=== PATIENT | male | born 1935 | race Caucasian/White ===

== ENCOUNTER 2023-04-19 15:14 | Outpatient (RCR) | payer MEDICARE, SELFPAY | END 2023-04-19 23:59 | disposition home or self-care (01) | LOC: RPT 15:14 | PROVIDERS: ATTENDING PHYSICIAN Specialist; PRIMARYCARE PHYSICIAN Family Medicine | DX: M17.11 Unilateral primary osteoarthritis, right knee (principal); Z73.6 Limitation of activities due to disability | CPT/HCPCS: 97110; 97530 ==

== ENCOUNTER 2023-06-12 12:58 | Outpatient (RCR) | payer MEDICARE, SELFPAY | END 2023-06-12 23:59 | disposition home or self-care (01) | LOC: RPT 12:58 | PROVIDERS: ATTENDING PHYSICIAN Specialist; PRIMARYCARE PHYSICIAN Family Medicine | DX: M17.11 Unilateral primary osteoarthritis, right knee (principal); R29.898 Other symptoms and signs involving the musculoskeletal system; Z73.6 Limitation of activities due to disability; M62.81 Muscle weakness (generalized); M25.561 Pain in right knee | CPT/HCPCS: 97110; 97112; 97140 ==

== ENCOUNTER 2023-06-19 12:57 | Outpatient (RCR) | payer MEDICARE, SELFPAY | END 2023-06-19 14:13 | disposition home or self-care (01) | LOC: RPT 12:57 | PROVIDERS: ATTENDING PHYSICIAN Specialist; PRIMARYCARE PHYSICIAN Family Medicine | DX: M17.11 Unilateral primary osteoarthritis, right knee (principal); R29.898 Other symptoms and signs involving the musculoskeletal system; Z73.6 Limitation of activities due to disability; M62.81 Muscle weakness (generalized) | CPT/HCPCS: 97110; 97112; 97140; 97530 ==

== ENCOUNTER → 2023-06-19 14:08 | Outpatient (REF) | payer MEDICARE, SELFPAY | LOC: RAD 14:08 | PROVIDERS: ATTENDING PHYSICIAN Internal Medicine Rheumatology; FAMILY PHYSICIAN Family Medicine | DX: R29.898 Other symptoms and signs involving the musculoskeletal system (principal) | CPT/HCPCS: 73523 ==

== ENCOUNTER → 2023-06-21 12:18 | Outpatient (REF) | payer MEDICARE, SELFPAY ==
[2023-06-21 13:11] LABS: INR 3.32; PT 33.7 Sec (11.4-14.6)
== END ==
LOC: REG 12:18
PROVIDERS: ATTENDING PHYSICIAN Internal Medicine Cardiovascular Disease; FAMILY PHYSICIAN Family Medicine
DX: I48.21 Permanent atrial fibrillation (principal)
CPT/HCPCS: 36415; 85610

== ENCOUNTER → 2023-07-10 15:16 | Outpatient (REF) | payer MEDICARE, SELFPAY | LOC: RAD 15:16 | PROVIDERS: ATTENDING PHYSICIAN Internal Medicine Rheumatology; FAMILY PHYSICIAN Family Medicine | DX: M25.561 Pain in right knee (principal) | CPT/HCPCS: 73560 ==

== ENCOUNTER → 2023-07-18 14:33 | Outpatient (REF) | payer MEDICARE, SELFPAY ==
[2023-07-18 15:30] LABS: INR 1.95; PT 22.5 Sec (11.4-14.6)
== END ==
LOC: REG 14:33
PROVIDERS: ATTENDING PHYSICIAN Internal Medicine Cardiovascular Disease; FAMILY PHYSICIAN Family Medicine
DX: I48.21 Permanent atrial fibrillation (principal)
CPT/HCPCS: 36415; 85610

== ENCOUNTER → 2023-07-26 12:14 | Outpatient (REF) | payer MEDICARE, SELFPAY ==
[2023-07-26 14:19] LABS: INR 2.17
== END ==
LOC: REG 12:14
PROVIDERS: ATTENDING PHYSICIAN Internal Medicine Cardiovascular Disease; FAMILY PHYSICIAN Family Medicine
DX: I48.21 Permanent atrial fibrillation (principal)
CPT/HCPCS: 36415; 85610

== ENCOUNTER → 2023-08-03 10:59 | Outpatient (REF) | payer MEDICARE, SELFPAY ==
[2023-08-03 11:38] LABS: INR 2.38; PT 25.9 Sec (11.4-14.6)
== END ==
LOC: REG 10:59
PROVIDERS: ATTENDING PHYSICIAN Internal Medicine Cardiovascular Disease; FAMILY PHYSICIAN Family Medicine
DX: I48.21 Permanent atrial fibrillation (principal)
CPT/HCPCS: 36415; 85610

== ENCOUNTER → 2023-08-12 14:00 | Outpatient (REF) | payer MEDICARE, SELFPAY ==
[2023-08-12 15:36] LABS: INR 2.29; PT 25.1 Sec (11.4-14.6)
== END ==
LOC: REG 14:00
PROVIDERS: ATTENDING PHYSICIAN Family Medicine; FAMILY PHYSICIAN Internal Medicine Cardiovascular Disease
DX: I48.21 Permanent atrial fibrillation (principal)
CPT/HCPCS: 36415; 85610

== ENCOUNTER → 2023-08-18 11:37 | Outpatient (REF) | payer MEDICARE, SELFPAY | LOC: MRI 3T 11:37 | PROVIDERS: ATTENDING PHYSICIAN Specialist; FAMILY PHYSICIAN Family Medicine | DX: M25.561 Pain in right knee (principal) | CPT/HCPCS: 73721 ==

== ENCOUNTER → 2023-08-19 15:55 | Outpatient (REF) | payer MEDICARE, SELFPAY ==
[2023-08-19 17:08] LABS: INR 2.04; PT 22.9 Sec (11.4-14.6)
== END ==
LOC: REG 15:55
PROVIDERS: ATTENDING PHYSICIAN Internal Medicine Cardiovascular Disease; FAMILY PHYSICIAN Family Medicine
DX: I48.21 Permanent atrial fibrillation (principal)
CPT/HCPCS: 36415; 85610

== ENCOUNTER → 2023-09-18 14:37 | Outpatient (REF) | payer MEDICARE, SELFPAY ==
[2023-09-18 15:34] LABS: INR 1.65; PT 19.6 Sec (11.4-14.6)
== END ==
LOC: REG 14:37
PROVIDERS: ATTENDING PHYSICIAN Internal Medicine Cardiovascular Disease; FAMILY PHYSICIAN Family Medicine
DX: Z79.01 Long term (current) use of anticoagulants (principal)
CPT/HCPCS: 36415; 85610

== ENCOUNTER → 2023-09-25 15:33 | Outpatient (REF) | payer MEDICARE, SELFPAY ==
[2023-09-25 16:21] LABS: PT 22.8 Sec (11.4-14.6)
== END ==
LOC: REG 15:33
PROVIDERS: ATTENDING PHYSICIAN Internal Medicine Cardiovascular Disease; FAMILY PHYSICIAN Family Medicine
DX: Z79.01 Long term (current) use of anticoagulants (principal)
CPT/HCPCS: 36415; 85610

== ENCOUNTER → 2023-10-08 11:18 | Outpatient (REF) | payer MEDICARE, SELFPAY ==
[2023-10-08 13:10] LABS: INR 2.63
== END ==
LOC: REG 11:18
PROVIDERS: ATTENDING PHYSICIAN Internal Medicine Cardiovascular Disease; FAMILY PHYSICIAN Family Medicine
DX: Z79.01 Long term (current) use of anticoagulants (principal)
CPT/HCPCS: 36415; 85610

== ENCOUNTER 2023-10-11 09:08 | Outpatient (RCR) | payer MEDICARE, SELFPAY | END 2023-10-11 23:59 | disposition home or self-care (01) | LOC: RPT 09:08 | PROVIDERS: ATTENDING PHYSICIAN Internal Medicine Rheumatology; FAMILY PHYSICIAN Family Medicine | DX: M17.11 Unilateral primary osteoarthritis, right knee (principal) | CPT/HCPCS: 97162; 97530 ==

== ENCOUNTER → 2023-10-17 12:08 | Outpatient (REF) | payer MEDICARE, SELFPAY ==
[2023-10-17 13:00] LABS: INR 3.28; PT 33.9 Sec (11.4-14.6)
== END ==
LOC: REG 12:08
PROVIDERS: ATTENDING PHYSICIAN Internal Medicine Cardiovascular Disease; FAMILY PHYSICIAN Family Medicine
DX: Z79.01 Long term (current) use of anticoagulants (principal)
CPT/HCPCS: 36415; 85610

== ENCOUNTER → 2023-10-24 07:38 | Outpatient (REF) | payer MEDICARE, SELFPAY ==
[2023-10-24 09:23] LABS: INR 3.08; PT 32.3 Sec (11.4-14.6)
[2023-10-24 09:38] LABS: Blood Urea Nitrogen 37 mg/dl (9-20); Carbon Dioxide 28 mmol/L (22-30); Chloride 100 mmol/L (98-107); Glucose 113 mg/dl (70-99); HDL Cholesterol 42 mg/dl; LDL Cholesterol, Calculated 57 mg/dl; Potassium 4.3 mmol/L (3.5-5.1); Sodium 140 mmol/L (135-145); Total Cholesterol 116 mg/dl (50-199); Triglyceride 85 mg/dl (10-149); Very Low Density Lipoprotein 17 mg/dl (0-30); eGFR > 60.00
[2023-10-25 09:11] LABS: Glycohemoglobin (HgbA1c) 6.2 % (4.0-5.6)
== END ==
LOC: REG 07:38
PROVIDERS: ATTENDING PHYSICIAN Family Medicine; FAMILY PHYSICIAN Internal Medicine Cardiovascular Disease
DX: E11.59 Type 2 diabetes mellitus with other circulatory complications (principal); Z79.01 Long term (current) use of anticoagulants
CPT/HCPCS: 36415; 80048; 80061; 83036; 85610

== ENCOUNTER → 2023-11-01 10:20 | Outpatient (REF) | payer MEDICARE, SELFPAY ==
[2023-11-01 11:31] LABS: PT 32.7 Sec (11.4-14.6)
== END ==
LOC: REG 10:20
PROVIDERS: ATTENDING PHYSICIAN Internal Medicine Cardiovascular Disease; FAMILY PHYSICIAN Family Medicine
DX: I48.20 Chronic atrial fibrillation, unspecified (principal)
CPT/HCPCS: 36415; 85610

== ENCOUNTER 2023-11-06 15:21 | Outpatient (RCR) | payer MEDICARE, SELFPAY | END 2023-11-06 23:59 | disposition home or self-care (01) | LOC: RPT 15:21 | PROVIDERS: ATTENDING PHYSICIAN Internal Medicine Rheumatology; FAMILY PHYSICIAN Family Medicine | DX: M17.10 Unilateral primary osteoarthritis, unspecified knee (principal) | CPT/HCPCS: 97110; 97112; 97530 ==

== ENCOUNTER → 2023-11-08 13:12 | Outpatient (REF) | payer MEDICARE, SELFPAY ==
[2023-11-08 14:33] LABS: INR 1.88; PT 21.4 Sec (11.4-14.6)
== END ==
LOC: REG 13:12
PROVIDERS: ATTENDING PHYSICIAN Internal Medicine Cardiovascular Disease; FAMILY PHYSICIAN Family Medicine
DX: I48.20 Chronic atrial fibrillation, unspecified (principal)
CPT/HCPCS: 36415; 85610

== ENCOUNTER → 2023-11-15 08:50 | Outpatient (REF) | payer MEDICARE, SELFPAY ==
[2023-11-15 10:26] LABS: PT 22.6 Sec (11.4-14.6)
== END ==
LOC: REG 08:50
PROVIDERS: ATTENDING PHYSICIAN Internal Medicine Cardiovascular Disease; FAMILY PHYSICIAN Family Medicine
DX: I48.20 Chronic atrial fibrillation, unspecified (principal)
CPT/HCPCS: 36415; 85610

== ENCOUNTER → 2023-11-22 12:05 | Outpatient (REF) | payer MEDICARE, SELFPAY ==
[2023-11-22 13:33] LABS: INR 2.16; PT 23.9 Sec (11.4-14.6)
== END ==
LOC: REG 12:05
PROVIDERS: ATTENDING PHYSICIAN Internal Medicine Cardiovascular Disease; FAMILY PHYSICIAN Family Medicine
DX: I48.20 Chronic atrial fibrillation, unspecified (principal)
CPT/HCPCS: 36415; 85610

== ENCOUNTER → 2023-11-29 09:00 | Outpatient (REF) | payer MEDICARE, SELFPAY | LOC: DHSLP 09:00 | PROVIDERS: ATTENDING PHYSICIAN Internal Medicine Critical Care Medicine | DX: G47.33 Obstructive sleep apnea (adult) (pediatric) (principal); G47.31 Primary central sleep apnea; G47.61 Periodic limb movement disorder | CPT/HCPCS: 95811 ==

== ENCOUNTER → 2023-11-29 14:27 | Outpatient (REF) | payer MEDICARE, SELFPAY ==
[2023-11-29 15:36] LABS: INR 2.37; PT 25.8 Sec (11.4-14.6)
== END ==
LOC: REG 14:27
PROVIDERS: ATTENDING PHYSICIAN Internal Medicine Cardiovascular Disease; FAMILY PHYSICIAN Family Medicine
DX: I48.20 Chronic atrial fibrillation, unspecified (principal)
CPT/HCPCS: 36415; 85610

== ENCOUNTER 2023-12-04 15:05 | Outpatient (RCR) | payer MEDICARE, SELFPAY | END 2023-12-05 07:26 | disposition home or self-care (01) | LOC: RPT 15:05 | PROVIDERS: ATTENDING PHYSICIAN Internal Medicine Rheumatology; FAMILY PHYSICIAN Family Medicine | DX: M17.11 Unilateral primary osteoarthritis, right knee (principal) | CPT/HCPCS: 97110; 97112; 97140; 97530 ==

== ENCOUNTER → 2023-12-06 11:51 | Outpatient (REF) | payer MEDICARE, SELFPAY ==
[2023-12-06 14:01] LABS: INR 2.15; PT 23.8 Sec (11.4-14.6)
== END ==
LOC: REG 11:51
PROVIDERS: ATTENDING PHYSICIAN Internal Medicine Cardiovascular Disease; FAMILY PHYSICIAN Family Medicine
DX: I48.20 Chronic atrial fibrillation, unspecified (principal)
CPT/HCPCS: 36415; 85610

== ENCOUNTER → 2023-12-27 12:36 | Outpatient (REF) | payer MEDICARE, SELFPAY | LOC: RAD 12:36 | PROVIDERS: ATTENDING PHYSICIAN Family Medicine | DX: R29.898 Other symptoms and signs involving the musculoskeletal system (principal) | CPT/HCPCS: 93922; 93925 ==

== ENCOUNTER → 2024-01-06 09:46 | Outpatient (REF) | payer MEDICARE, SELFPAY ==
[2024-01-06 10:54] LABS: PT 21.6 Sec (11.4-14.6)
== END ==
LOC: REG 09:46
PROVIDERS: ATTENDING PHYSICIAN Internal Medicine Cardiovascular Disease
DX: I48.20 Chronic atrial fibrillation, unspecified (principal)
CPT/HCPCS: 36415; 85610

== ENCOUNTER → 2024-02-03 15:09 | Outpatient (REF) | payer MEDICARE, SELFPAY ==
[2024-02-03 16:18] LABS: INR 2.36; PT 25.7 Sec (11.4-14.6)
== END ==
LOC: REG 15:09
PROVIDERS: ATTENDING PHYSICIAN Internal Medicine Cardiovascular Disease; FAMILY PHYSICIAN Family Medicine
DX: I48.20 Chronic atrial fibrillation, unspecified (principal)
CPT/HCPCS: 36415; 85610

== ENCOUNTER → 2024-02-10 15:04 | Outpatient (REF) | payer MEDICARE, SELFPAY ==
[2024-02-10 16:23] LABS: % Basophils 0.5 % (0-2); % Immature Granulocytes 0.4 % (0-0.5); % Monocytes 8.1 % (1.7-9.3); Absolute Eosinophils 0.3 10^3/uL (0-0.7); Absolute Lymphocytes 1.2 10^3/uL (1.2-3.4); Absolute Monocytes 0.6 10^3/uL (0.1-0.6); Absolute Neutrophils 5.3 10^3/uL (1.4-6.5); Hematocrit 34.8 % (39.0-52.0); Hemoglobin 11.6 g/dL (13.0-18.0); Mean Corp Hgb Conc. 33.3 g/dL (33.0-37.0); Mean Corpuscular Hgb 32.1 pg (27.0-31.0); Mean Corpuscular Volume 96.4 fL (80.0-94.0); Mean Platelet Volume 12.5 fL (7.4-10.4); Nucleated Red Blood Cells % 0 % (-); Platelet Count 142 10^3/uL (130-400); Red Blood Cell Count 3.61 10^6/uL (4.70-6.10); Red Cell Dist. Width 14.8 % (11.5-14.5); White Blood Cell Count 7.5 10^3/uL (4.8-10.8)
== END ==
LOC: REG 15:04
PROVIDERS: ATTENDING PHYSICIAN Student in an Organized Health Care Education/Training Program; FAMILY PHYSICIAN Family Medicine
DX: D53.9 Nutritional anemia, unspecified (principal); R19.4 Change in bowel habit
CPT/HCPCS: 36415; 85025

== ENCOUNTER → 2024-02-24 15:58 | Outpatient (REF) | payer MEDICARE, SELFPAY ==
[2024-02-26 18:16] LABS: FIT-Fecal Occult Blood Interp Negative
== END ==
LOC: REG 15:58
PROVIDERS: ATTENDING PHYSICIAN Student in an Organized Health Care Education/Training Program
DX: R19.4 Change in bowel habit (principal)
CPT/HCPCS: 83520

== ENCOUNTER → 2024-03-02 15:48 | Outpatient (REF) | payer MEDICARE, SELFPAY ==
[2024-03-02 18:27] LABS: INR 1.91; PT 21.7 Sec (11.4-14.6)
== END ==
LOC: REG 15:48
PROVIDERS: ATTENDING PHYSICIAN Internal Medicine Cardiovascular Disease; FAMILY PHYSICIAN Family Medicine
DX: I48.20 Chronic atrial fibrillation, unspecified (principal)
CPT/HCPCS: 36415; 85610

== ENCOUNTER → 2024-03-09 12:33 | Outpatient (REF) | payer MEDICARE, SELFPAY | LOC: RCS 12:33 | PROVIDERS: ATTENDING PHYSICIAN Internal Medicine Cardiovascular Disease; FAMILY PHYSICIAN Family Medicine | DX: I48.21 Permanent atrial fibrillation (principal); R06.09 Other forms of dyspnea | CPT/HCPCS: 93225; 93226 ==

== ENCOUNTER → 2024-03-11 14:49 | Outpatient (REF) | payer MEDICARE, SELFPAY | LOC: HWRCS 14:49 | PROVIDERS: ATTENDING PHYSICIAN Internal Medicine Cardiovascular Disease; FAMILY PHYSICIAN Family Medicine | DX: R06.02 Shortness of breath (principal) | CPT/HCPCS: 93306 ==

== ENCOUNTER → 2024-03-31 14:28 | Outpatient (REF) | payer MEDICARE, SELFPAY ==
[2024-03-31 16:09] LABS: % Basophils 0.6 % (0-2); % Eosinophils 1.8 % (0-6); % Immature Granulocytes 0.4 % (0-0.5); % Lymphocytes 13.1 % (20.5-51.1); % Neutrophils 75.1 % (42.2-75.2); Absolute Basophils 0.1 10^3/uL (0-0.2); Absolute Eosinophils 0.2 10^3/uL (0-0.7); Absolute Lymphocytes 1.3 10^3/uL (1.2-3.4); Absolute Monocytes 0.9 10^3/uL (0.1-0.6); Absolute Neutrophils 7.1 10^3/uL (1.4-6.5); Hematocrit 37.1 % (39.0-52.0); Mean Corp Hgb Conc. 32.3 g/dL (33.0-37.0); Mean Corpuscular Hgb 32.1 pg (27.0-31.0); Mean Corpuscular Volume 99.2 fL (80.0-94.0); Mean Platelet Volume 12.4 fL (7.4-10.4); Nucleated Red Blood Cells % 0 % (-); Platelet Count 116 10^3/uL (130-400); Red Blood Cell Count 3.74 10^6/uL (4.70-6.10); Red Cell Dist. Width 14.9 % (11.5-14.5); White Blood Cell Count 9.5 10^3/uL (4.8-10.8)
[2024-03-31 16:18] LABS: INR 1.73; PT 20.5 Sec (11.4-14.6)
[2024-03-31 16:33] LABS: ALT (SGPT) 27 U/L (0-50); AST (SGOT) 41 U/L (17-59); Albumin 4.7 g/dl (3.5-5.0); Alkaline Phosphatase 107 U/L (38-126); Blood Urea Nitrogen 38 mg/dl (9-20); Carbon Dioxide 27 mmol/L (22-30); Chloride 96 mmol/L (98-107); Glucose 128 mg/dl (70-99); Potassium 4.8 mmol/L (3.5-5.1); Sodium 141 mmol/L (135-145); Total Bilirubin 1.2 mg/dl (0.2-1.3); eGFR > 60.00
== END ==
LOC: REG 14:28
PROVIDERS: ATTENDING PHYSICIAN Internal Medicine Cardiovascular Disease
DX: I48.20 Chronic atrial fibrillation, unspecified (principal); I48.21 Permanent atrial fibrillation; I40.1 Isolated myocarditis; I10 Essential (primary) hypertension; E11.59 Type 2 diabetes mellitus with other circulatory complications; R06.02 Shortness of breath; Z95.5 Presence of coronary angioplasty implant and graft; I27.20 Pulmonary hypertension, unspecified
CPT/HCPCS: 36415; 80053; 85025; 85610

== ENCOUNTER 2024-04-01 08:43 | Day surgery (SDC) | payer MEDICARE, SELFPAY ==
[2024-04-01] VITALS (27 sets, daily range): BP systolic 110–154; BP diastolic 61–104; BMI 30.4
[2024-04-01 09:27] LABS: Glucose - Point of Care 146 mg/dl (70-99)
[2024-04-01 09:36] LABS: INR 1.78; PT 21.2 Sec (11.4-14.6)
[2024-04-01 12:12] LABS: ACT-LR - POC 358 Seconds (116-155)
--- NOTE | 2024-04-01 12:22 | ITS.CL.CATH ---
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
Cardiac Catheterization
Procedure Report:
CARDIAC CATHETERIZATION REPORT
Date of Procedure: 04/01/2024
Referring: Chuy Bennett M.D.
Indication: Heart failure with preserved ejection fraction, moderate aortic valve disease, moderate to severe mitral valve regurgitation.
PROCEDURE:
1. Right heart catheterization.
2. Left heart catheterization.
3. Coronary angiography.
4. Aortic valve interrogation.
5. Mitral valve interrogation.
6. Left ventriculography.
7. Aortography.
8. Successful IFR of the ostial LAD.
ACCESS:
6 Ug[place]an left common femoral artery using a modified Seldinger technique with a micropuncture kit under ultrasound guidance.
5 Ug[place]an right antecubital vein using a modified Seldinger technique under ultrasound guidance.
CATHETERS:
1. 5 Ugandan balloon wedge.
2. 5 Ugandan JL 4.
3. 5 Ug[place]an JR4.
4. 6 [place] dual-lumen pigtail catheter.
5. 6 Ug[place]an JL 4 guiding catheter.
HEMODYNAMIC DATA
Weight (kg): 80.3
AO (s/d/x mmHg): 139/78/104
LV (s/x mmHg): 154/32
PCWP (a/v/x mmHg): 42/50/35
PA (s/d/x mmHg): 62/39/47
RV (s/x mmHg): 66/25
RA (a/v/x mmHg): 31/29/25
SVC SvO2 (%): 54.8
PA SvO2 (%): 52.7
SaO2 (%): 84.0
Hbg (g/dL): 10.2
CO (L/min): 5.86
CI (L/min/m2): 3.15
TPG (mmHg): 12
PVR (Ang Units): 2.05
SVR (dynes*seconds*cm^-5): 1078
AVO2 Diff (Volume %): 4.34
AV gradient (x, mmHg): 15.08
AV area (cm2): 1.40
MV gradient (x, mmHg): 8.79
MV area (cm2): 1.98
LEFT VENTRICULOGRAPHY: Performed in an GUNTER projection. Moderate to severely dilated left ventricle with mild global hypokinesis and mildly reduced systolic function. Left ventricular ejection fraction estimated at 40-45%. There is significant
mitral valve regurgitation (not fully appreciated due to low volume injection secondary to chronic kidney disease).
Aortography: Performed in SWISS projection. The aortic root, ascending aorta and aortic arch appear normal. There is mild aortic valve insufficiency.
CORONARY ANGIOGRAPHY
Dominance: Codominant.
Left Main: Congenitally absent.
LAD: Normal size vessel arising directly from the aorta and giving rise to 1 significant diagonal. Patent stent is visible in the proximal vessel. There is a 40% lesion in the ostium of the LAD.
Ramus: Congenitally absent.
Circumflex: Large size, codominant vessel arising directly from the aorta and giving rise to 2 obtuse marginals before terminating as a partial LPDA. There is a patent stents in the mid circumflex after the origin of the first obtuse marginal.
There is very mild in-stent restenosis.
RCA: Small size, codominant vessel. There is an 80% lesion in the mid vessel that is too small for intervention.
INTERVENTIONS
1. Successful IFR of the 40% ostial LAD lesion, demonstrating nonocclusive disease (IFR = 0.93).
Narrative:
The decision was made to perform physiologic testing. The diagnostic catheter was removed over a wire and exchanged for a(n) 6 Ugandan JL 4 guiding catheter. The guiding catheter was advanced into the ascending aorta and seated in the left main
coronary artery. Additional heparin was given to obtain an ACT greater than 250 seconds. An iFR wire was zeroed outside of the body, then inserted into the guiding sheath. The wire was advanced and the transducer was normalized just outside of the
guiding catheter tip while it was disengaged from the coronary. The wire was advanced into the mid LAD, beyond the ostial 40% LAD lesion. Three iFR measurements were taken. The lesion was determined to be nonocclusive (0.93).
Closure Device: Manual pressure for left common femoral artery and right antecubital vein.
Radiation dose (mGy): 489.49
DAP (cm2.Gy): 43.5518
Fluoroscopy time (minutes): 8.4
Sedation time (minutes): 31
CONCLUSIONS:
1. Codominant circulation with an 80% lesion in the small RCA that is not amenable to intervention, a congenitally absent left main, patent stents in the proximal LAD and mid circumflex And a nonocclusive, 40% lesion in the ostium of the LAD (IFR =
0.93).
2. Moderate aortic valve stenosis (mean gradient = 15.08 mmHg, aortic valve area 1.40 cm�).
3. Aortic valve insufficiency, moderate by echo, mild by aortography.
4. Significant mitral valve regurgitation on left ventriculography, moderate to severe by echo.
5. Elevated transmitral gradient suggestive of moderate mitral stenosis (mean gradient 8.79 mmHg, MVA = 1.98 cm�).
6. Severely elevated filling pressures (LVEDP = 32 mmHg, PCWP = 35 mmHg at 80.3 kg).
7. Moderate, postcapillary pulmonary hypertension (mean PA = 47 mmHg, PCWP = 35 mmHg, cardiac index = 3.15 L/min/m�, PVR = 2.05 Ang units), WHO group 2.
8. Significant peripheral arterial disease with dense atherosclerotic disease in the left common femoral artery on ultrasound and angiography. 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
RECOMMENDATIONS:
1. Expectant management after cardiac catheterization via left common femoral approach.
2. Limited weight bearing for one week.
3. Increase furosemide to 80 mg twice daily.
4. Daily weights. I would expect him to have a significant decrease in weight with successful diuresis.
5. BMP in 1 week.
6. Consideration of metolazone as needed for thiazide augmentation.
7. Guideline directed medical therapy as hemodynamics will tolerate.
8. Aggressive secondary prevention with aspirin and high-dose, high potency statin.
9. Transesophageal echocardiogram to evaluate mitral valve anatomy and assess for severity of mitral regurgitation and mitral stenosis.
Copy to: Chuy Bennett M.D., Juarez Tate M.D.
Jagdeep Rose DO, FACC, FACP
[2024-04-01 13:26] LABS: ACT-LR - POC 253 Seconds (116-155)
[2024-04-01] MEDS: APRESOLINE 5 MG IV (13:30)
[2024-04-01 14:21] LABS: Glucose - Point of Care 142 mg/dl (70-99)
[2024-04-01 14:23] LABS: ACT-LR - POC 219 Seconds (116-155)
[2024-04-01 15:15] LABS: ACT-LR - POC 189 Seconds (116-155)
[2024-04-01] MEDS: LASIX 40 MG IV (17:04)
[2024-04-01] MEDS: COZAAR 50 MG PO (17:12)
[2024-04-01] MEDS: TOPROL XL 50 MG PO (17:12)
[2024-04-01] MEDS: FLOMAX 0.4 MG PO (17:12)
== END 2024-04-01 19:11 | disposition home or self-care (01) ==
LOC: CATH 08:43
PROVIDERS: ATTENDING PHYSICIAN Internal Medicine Cardiovascular Disease; FAMILY PHYSICIAN Family Medicine; OTHER PHYSICIAN Internal Medicine Cardiovascular Disease
DX: I25.10 Atherosclerotic heart disease of native coronary artery without angina pectoris (principal); I11.0 Hypertensive heart disease with heart failure; I50.32 Chronic diastolic (congestive) heart failure; I48.91 Unspecified atrial fibrillation; I08.0 Rheumatic disorders of both mitral and aortic valves; I27.29 Other secondary pulmonary hypertension; E11.9 Type 2 diabetes mellitus without complications; G47.33 Obstructive sleep apnea (adult) (pediatric); Z95.5 Presence of coronary angioplasty implant and graft; Z87.891 Personal history of nicotine dependence; Z79.84 Long term (current) use of oral hypoglycemic drugs; Z79.82 Long term (current) use of aspirin; Z79.01 Long term (current) use of anticoagulants
CPT/HCPCS: 93799; C1894; C1769; 82962; 85347; 85610; 93460; Q9967

== ENCOUNTER → 2024-04-07 15:27 | Outpatient (REF) | payer MEDICARE, SELFPAY ==
[2024-04-07 17:12] LABS: Blood Urea Nitrogen 53 mg/dl (9-20); Calcium 10.4 mg/dl (8.4-10.2); Carbon Dioxide 31 mmol/L (22-30); Chloride 94 mmol/L (98-107); Glucose 108 mg/dl (70-99); Sodium 141 mmol/L (135-145); eGFR 53.17
== END ==
LOC: REG 15:27
PROVIDERS: ATTENDING PHYSICIAN Internal Medicine Cardiovascular Disease; FAMILY PHYSICIAN Family Medicine
DX: I49.8 Other specified cardiac arrhythmias (principal)
CPT/HCPCS: 36415; 80048

== ENCOUNTER → 2024-04-13 07:14 | Day surgery (SDC) | payer MEDICARE, SELFPAY ==
[2024-04-13 07:53] LABS: INR 2.07; PT 23.4 Sec (11.4-14.6)
[2024-04-13 08:30] LABS: Glucose - Point of Care 129 mg/dl (70-99)
== END ==
LOC: CATH 07:14
PROVIDERS: Internal Medicine Cardiovascular Disease; ATTENDING PHYSICIAN Internal Medicine; FAMILY PHYSICIAN Family Medicine; OTHER PHYSICIAN Internal Medicine Cardiovascular Disease
DX: I08.3 Combined rheumatic disorders of mitral, aortic and tricuspid valves (principal); I48.21 Permanent atrial fibrillation; I42.9 Cardiomyopathy, unspecified; R06.09 Other forms of dyspnea; I25.10 Atherosclerotic heart disease of native coronary artery without angina pectoris; E11.9 Type 2 diabetes mellitus without complications; I10 Essential (primary) hypertension; E78.5 Hyperlipidemia, unspecified; G47.33 Obstructive sleep apnea (adult) (pediatric); Z87.891 Personal history of nicotine dependence; Z79.84 Long term (current) use of oral hypoglycemic drugs; Z79.82 Long term (current) use of aspirin; Z79.01 Long term (current) use of anticoagulants
CPT/HCPCS: 93312; 93320; 93325; 82962; 85610

== ENCOUNTER → 2024-04-21 16:15 | Outpatient (REF) | payer MEDICARE, SELFPAY ==
[2024-04-21 17:41] LABS: PT 19.3 Sec (11.4-14.6)
== END ==
LOC: REG 16:15
PROVIDERS: ATTENDING PHYSICIAN Internal Medicine Cardiovascular Disease; FAMILY PHYSICIAN Family Medicine
DX: I48.21 Permanent atrial fibrillation (principal)
CPT/HCPCS: 36415; 85610

== ENCOUNTER → 2024-04-29 14:26 | Outpatient (REF) | payer MEDICARE, SELFPAY ==
[2024-04-29 15:31] LABS: INR 2.15; PT 24.4 Sec (11.4-14.6)
== END ==
LOC: REG 14:26
PROVIDERS: ATTENDING PHYSICIAN Internal Medicine Cardiovascular Disease; FAMILY PHYSICIAN Family Medicine
DX: I48.21 Permanent atrial fibrillation (principal)
CPT/HCPCS: 36415; 85610

== ENCOUNTER → 2024-05-07 15:25 | Outpatient (REF) | payer MEDICARE, SELFPAY ==
[2024-05-07 16:05] LABS: INR 2.61; PT 28.3 Sec (11.4-14.6)
== END ==
LOC: REG 15:25
PROVIDERS: ATTENDING PHYSICIAN Internal Medicine Cardiovascular Disease
DX: I48.21 Permanent atrial fibrillation (principal)
CPT/HCPCS: 36415; 85610

== ENCOUNTER → 2024-05-15 15:27 | Outpatient (REF) | payer MEDICARE, SELFPAY ==
[2024-05-15 16:48] LABS: INR 3.02; PT 31.2 Sec (11.4-14.6)
== END ==
LOC: REG 15:27
PROVIDERS: ATTENDING PHYSICIAN Internal Medicine Cardiovascular Disease
DX: I48.21 Permanent atrial fibrillation (principal)
CPT/HCPCS: 36415; 85610

== ENCOUNTER → 2024-05-21 15:18 | Outpatient (REF) | payer MEDICARE, SELFPAY ==
[2024-05-21 17:01] LABS: INR 2.47; PT 27.2 Sec (11.4-14.6)
== END ==
LOC: REG 15:18
PROVIDERS: ATTENDING PHYSICIAN Internal Medicine Cardiovascular Disease; CONSULT PHYSICIAN Thoracic Surgery (Cardiothoracic Vascular Surgery)
DX: I48.20 Chronic atrial fibrillation, unspecified (principal)
CPT/HCPCS: 36415; 85610

== ENCOUNTER → 2024-06-19 07:55 | Outpatient (REF) | payer MEDICARE, SELFPAY ==
[2024-06-19 09:04] LABS: % Basophils 0.6 % (0-2); % Eosinophils 7.8 % (0-6); % Immature Granulocytes 0.6 % (0-0.5); % Lymphocytes 21.4 % (20.5-51.1); % Monocytes 8.7 % (1.7-9.3); % Neutrophils 60.9 % (42.2-75.2); Absolute Eosinophils 0.5 10^3/uL (0-0.7); Absolute Lymphocytes 1.5 10^3/uL (1.2-3.4); Absolute Monocytes 0.6 10^3/uL (0.1-0.6); Absolute Neutrophils 4.1 10^3/uL (1.4-6.5); Hematocrit 35.2 % (39.0-52.0); Hemoglobin 11.6 g/dL (13.0-18.0); Mean Corpuscular Hgb 32.5 pg (27.0-31.0); Mean Corpuscular Volume 98.6 fL (80.0-94.0); Mean Platelet Volume 12.1 fL (7.4-10.4); Nucleated Red Blood Cells % 0 % (-); Platelet Count 144 10^3/uL (130-400); Red Blood Cell Count 3.57 10^6/uL (4.70-6.10); Red Cell Dist. Width 15.9 % (11.5-14.5); White Blood Cell Count 6.8 10^3/uL (4.8-10.8)
[2024-06-19 09:12] LABS: INR 3.13
[2024-06-19 10:00] LABS: Blood Urea Nitrogen 50 mg/dl (9-20); Calcium 9.9 mg/dl (8.4-10.2); Carbon Dioxide 26 mmol/L (22-30); Chloride 96 mmol/L (98-107); Glucose 97 mg/dl (70-99); Potassium 5.4 mmol/L (3.5-5.1); Sodium 136 mmol/L (135-145); eGFR > 60.00
[2024-06-19 11:06] LABS: Folate 16.6 ng/ml (2.76-20); Vitamin B12 628 pg/ml (239-931)
== END ==
LOC: REG 07:55
PROVIDERS: ATTENDING PHYSICIAN Family Medicine; FAMILY PHYSICIAN Internal Medicine Cardiovascular Disease
DX: I34.0 Nonrheumatic mitral (valve) insufficiency (principal); D53.9 Nutritional anemia, unspecified; K12.0 Recurrent oral aphthae
CPT/HCPCS: 36415; 80048; 82607; 82746; 85025; 85610

== ENCOUNTER → 2024-06-24 16:33 | Outpatient (REF) | payer MEDICARE, SELFPAY ==
[2024-06-24 17:21] LABS: Urine Albumin 1+ (Neg - Trace); Urine Bilirubin Negative (Negative); Urine Character Clear (Clear); Urine Color Yellow; Urine Glucose Negative (Negative); Urine Ketone Negative (Negative); Urine Leukocyte Negative (Negative); Urine Nitrite Negative (Negative); Urine Occult Blood Negative (Negative); Urine Specific Gravity 1.015 (<1.030); Urine Urobilinogen Negative (Neg - 1+)
[2024-06-24 20:27] LABS: Urine Squamous Cell 0-2 /LPF (Few)
[2024-06-24 20:28] LABS: Urine Red Blood Cell 0-2 /HPF (0-2); Urine White Cell 0-2 /HPF (0-5)
== END ==
LOC: CLAB 16:33
PROVIDERS: ATTENDING PHYSICIAN Specialist
DX: Z87.448 Personal history of other diseases of urinary system (principal)
CPT/HCPCS: 81003; 81015

== ENCOUNTER → 2024-06-29 16:27 | Outpatient (REF) | payer MEDICARE, SELFPAY ==
[2024-06-29 17:43] LABS: INR 2.37; PT 25.9 Sec (11.4-14.6)
== END ==
LOC: REG 16:27
PROVIDERS: ATTENDING PHYSICIAN Internal Medicine Cardiovascular Disease
DX: I48.21 Permanent atrial fibrillation (principal)
CPT/HCPCS: 36415; 85610

== ENCOUNTER 2024-07-08 05:59 | Inpatient (IN) | payer MEDICARE, SELFPAY ==
[2024-07-01 12:00] VITALS: BMI 30.7
[2024-07-01 12:58] LABS: % Basophils 0.4 % (0-2); % Eosinophils 5.2 % (0-6); % Immature Granulocytes 0.4 % (0-0.5); % Lymphocytes 18.2 % (20.5-51.1); % Monocytes 8.7 % (1.7-9.3); % Neutrophils 67.1 % (42.2-75.2); Absolute Eosinophils 0.4 10^3/uL (0-0.7); Absolute Lymphocytes 1.3 10^3/uL (1.2-3.4); Absolute Monocytes 0.6 10^3/uL (0.1-0.6); Absolute Neutrophils 4.8 10^3/uL (1.4-6.5); Hematocrit 35.5 % (39.0-52.0); Hemoglobin 11.4 g/dL (13.0-18.0); Mean Corp Hgb Conc. 32.1 g/dL (33.0-37.0); Mean Corpuscular Hgb 32.3 pg (27.0-31.0); Mean Corpuscular Volume 100.6 fL (80.0-94.0); Mean Platelet Volume 12.7 fL (7.4-10.4); Nucleated Red Blood Cells % 0 % (-); Platelet Count 108 10^3/uL (130-400); Red Blood Cell Count 3.53 10^6/uL (4.70-6.10); Red Cell Dist. Width 15.7 % (11.5-14.5); White Blood Cell Count 7.1 10^3/uL (4.8-10.8)
[2024-07-01 13:08] LABS: APTT 39.5 Sec (23.4-35.0); INR 2.46; PT 27.1 Sec (11.4-14.6)
[2024-07-01 13:37] LABS: Urine Albumin 3+ (Neg - Trace); Urine Bilirubin Negative (Negative); Urine Character Clear (Clear); Urine Color Yellow; Urine Glucose Negative (Negative); Urine Ketone Negative (Negative); Urine Leukocyte Negative (Negative); Urine Nitrite Negative (Negative); Urine Occult Blood 1+ (Negative); Urine Urobilinogen Negative (Neg - 1+)
--- NOTE | 2024-07-01 13:49 | HPS.HSE ---
Family Physician
-
Family Physician: Jose Vides, DO
Poultry Processor: Chuy Bennett
Chief Complaint
-
Pre-procedure History and physical
History of Present Illness
Mr. Solis is a very pleasant 89yo gentleman with progressive SCHNEIDER. He is having difficulty just getting up one flight of stairs without stopping. His functional status has declined slightly secondary to this SCHNEIDER He denies CP, palpitations,
orthopnea, PND or peripheral edema. He underwent a transesophageal echocardiographic assessment on 04/13/2024 that demonstrated an LVEF of 50 to 55% with thickened mitral valve leaflets with prolapse occurring at 83 with a severe, highly eccentric
mitral regurgitant jet directed posteriorly. There is no significant mitral stenosis with a baseline mean gradient of 2 to 3 mmHg. His mitral valve area was calculated at 5.4 cm sq. his left atrium was severely dilated. He has moderate aortic valve
stenosis with peak/mean gradients of 26/17 mmHg respectively with associated moderate aortic regurgitation (pressure half-time 255). He has moderate tricuspid regurgitation. When compared to his prior echo from 05/16/2023, his previously calculated
BRETT was 1.1 cm with mild aortic regurgitation. He has a small PFO. Subsequent coronary angiography demonstrated codominant system with a 40% lesion in the ostium of the LAD that was nonocclusive on IFR measurement there was also an 80% lesion in his
RCA that was too small for intervention.
Medical History
Past Medical History
Past Medical History: Reports Arrhythmia (Permanent A-fib), CAD (previous PCI), HTN, Hypercholesterolemia, NIDDM, Valvular Disease (severe MR, moderate , moderate AI) and Other (LIVIA, Hearing loss in left ear, generalized anxiety disorder, chronic
insomnia, BPH, kidney stones, arthritis)
Past Surgical History: Reports Other (Bilateral hernia repair, removal of BCC, PCI 09/04/2021, Right hip ORIF)
Social History
Tobacco: Former Smoker
Alcohol: Daily
Drug: None
Personal:
Living: With Family
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
Family History
Family History: Not pertinent
Allergies / Home Medications
Allergies reflects when Allergies were last updated in [facility].
Home Medications with original date entered in [facility]
Allergy/Medication List:
Allergies:
Cefpodoxime, Diphenhydramine, Eptifibatide, Pseudoephedrine
Medications:
Aspir-Low 81 MG Tablet Delayed Release 1 tablet Orally Once a day
Atorvastatin Calcium 40 MG Tablet 1 tablet Orally Once a day
Cozaar(Losartan Potassium) 50 MG Tablet 1 tablet Orally Once a day
CPAP
Furosemide 80 MG Tablet 1 tablet Orally Once a day
Glimepiride 1 MG Tablet TAKE 1 TABLET BY MOUTH DAILY WITH BREAKFAST OR FIRST MAIN MEAL OF THE DAY
Januvia(SITagliptin Phosphate) 100 MG Tablet TAKE 1 TABLET BY MOUTH ONCE DAILY
metFORMIN HCl 1000 MG Tablet 1 tablet Orally Twice a day
Metoprolol Succinate ER 50 MG Tablet Extended Release 24 Hour 1 tablet Orally Twice a day
Multivitamin(Multiple Vitamin) - Tablet 1 tablet Orally Once a day
Potassium Chloride ER 20 MEQ Tablet Extended Release 1 tablet with food Orally Once a day
Tamsulosin HCl 0.4 MG Capsule TAKE 1 CAPSULE BY MOUTH ONCE DAILY
Vitamin D3 1 tablet Orally Once a dayVitamin E 1 capsule Orally Once a day
Warfarin Sodium 5 MG Tablet Take 1 tablet daily or as directed Orally Once a day
Review of Systems
-
History Source: Patient
Constitutional: Reports No Symptoms
EENT: Reports No Symptoms
Respiratory: Reports Trouble Breathing (SCHNEIDER)
Cardiac: Denies Chest Pain, Palpitations or Syncope
Abdomen/GI: Reports No Symptoms; Denies Abdominal Pain, Nausea or Vomiting
: Reports Frequency and Urgency; Denies Dysuria, Difficulty Voiding or Bleeding
Musculoskeletal: Reports Muscle Pain (bilateral calves when walking); Denies Edema
Skin: Reports No Symptoms
Neurological: Reports No Symptoms; Denies Headache or Weakness
Endocrine: Reports No Symptoms
Hematologic/Lymphatic: Reports No Symptoms
Psych: Reports Anxiety
Physical Exam
Physical Exam
General: Well Developed (appears younger than his age of 89), Well Nourished and No Apparent Distress
HEENT: NormoCephalic, Moist mucous membranes, PERRLA, Nose Appears Normal and Ears Appear Normal
Respiratory: Clear and Non Labored Respirations; No Wheezes, Rales or Rhonchi
Cardiac: Irregular Rhythm and Murmur (Grade I/ right sternal border, Grade III/ left sternal border, Grade II/ at apex of the heart )
Breast: Deferred by me
GI: Soft, Non Tender, Non Distended and Normal Bowel Sounds
Rectal: Deferred by Provider
Genito-urinary: Deferred by me
Musculoskeletal: No Edema
Skin: Warm and Dry
Neuro: AO x 3 and Nonfocal/grossly intact
Psych: Calm and Intact Judgment/Insight
Laboratory Results
-
07/01/24 12:19
Laboratory Results
PT 27.1 Sec (11.4-14.6) H 07/01/24 12:19
INR 2.46 07/01/24 12:19
APTT 39.5 Sec (23.4-35.0) H 07/01/24 12:19
Data Reviewed
-
Medical Tests (Nuc Med, Echo, EKG etc): Report Reviewed by me (echo, KESHIA, cardiac cath, EKG) and Discussed with Physician
Lab Data: Labs Reviewed by me
Old Records: Reviewed (Cardiology and CT office notes)
Impression/Plan
-
IMPRESSION:
Severe Mitral Regugitation
PLAN:
-Mitraclip 07/08/2024
-Held Januvia and Coumadin, last dose 07/04/2024, may resume post procedure
-Continue asa 81mg including taking the morning of procedure
-5:30am arrival to [facility] on 07/08/2024
-POD #1, 30 day and 6 month follow up echocardiogram
-Cardiac rehab consult
[2024-07-01 14:03] LABS: ALT (SGPT) 26 U/L (0-50); AST (SGOT) 33 U/L (17-59); Albumin 4.9 g/dl (3.5-5.0); Alkaline Phosphatase 98 U/L (38-126); Blood Urea Nitrogen 37 mg/dl (9-20); Calcium 9.9 mg/dl (8.4-10.2); Carbon Dioxide 28 mmol/L (22-30); Chloride 96 mmol/L (98-107); Direct Bilirubin 0.3 mg/dl (0.0-0.4); Estimated Creatinine Clearance 48 ml/min; Glucose 117 mg/dl (70-99); Potassium 4.5 mmol/L (3.5-5.1); Sodium 136 mmol/L (135-145); Total Bilirubin 1.2 mg/dl (0.2-1.3); Total Protein 7.9 g/dl (6.3-8.2); eGFR > 60.00
[2024-07-01 14:10] LABS: NT-proBNP 1410 pg/ml
--- NOTE | 2024-07-01 14:27 | CM ---
Met with Mr. Solis in [facility]. He states prior to admission he resides with his spouse in a second floor condo with fourteen steps to enter. He states prior to admission he ambulates in the house independently and uses a single point cane in the
community. He states he has a single point cane, walker and CPAP Machine at home. He states he has a prescription plan and uses [facility]. He states his spouse will be home to assist in his care if needed. The discharge plan is to return home
with his spouse and a home visit by the Transitional Care Nurse when medically stable.
We reviewed pre-op and post-op routines. We reviewed the shower instructions. He has the soap,written instructions and the Mitraclip educational sheet. We reviewed restrictions including lifting and driving. We discussed a home visit by the
Transitional Care Nurse. He is agreeable to a home visit. The plan is for Mitraclip on Saturday07/08/24.
[2024-07-01 14:42] LABS: Urine Amorphous Seen
[2024-07-01 14:43] LABS: Urine Red Blood Cell 0-2 /HPF (0-2)
[2024-07-01 14:46] LABS: Glycohemoglobin (HgbA1c) 5.7 % (4.0-5.6)
[2024-07-08] VITALS (14 sets, daily range): BP systolic 91–148; BP diastolic 40–96; BMI 28.9
--- NOTE | 2024-07-08 06:00 | PTCARENOTE ---
Pt admitted to room 2267. Pt confirmed showers at home and NPO status. Pt oriented to room. Weight and VS obtained. Pt clipped and cleaned w/ CHG wipes. Admission questions and home medications completed. call del valle within reach
[2024-07-08] MEDS: BACTROBAN 2% OINTMENT 1 APPLIC NASAL (06:30)
[2024-07-08 07:45] LABS: Glucose - Point of Care 155 mg/dl (70-99)
[2024-07-08 07:59] LABS: INR 1.56; PT 19.2 Sec (11.4-14.6)
--- NOTE | 2024-07-08 08:31 | CM ---
Reviewed chart. Mr. Solis is in the operating room today. Prior to admission he resides with his spouse in a second floor condo with fourteen steps to enter. Prior to admission he ambulated independently in the home but uses a single point cane in
the community. He is independent with adls. He has a walker, single point cane and CPAP machine at home. He has a prescription plan and uses [facility]. His spouse will be home to assist in his care if needed. Medical work-up in progress. The
discharge plan is to return home with his spouse and a home visit by the Transitional Care Nurse when medically stable.
[2024-07-08 09:10] LABS: ACT-LR - POC 289 Seconds (116-155)
[2024-07-08 09:55] LABS: ACT-LR - POC 316 Seconds (116-155)
--- NOTE | 2024-07-08 10:44 | ITS.CL.PN ---
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
Procedure
Procedure Note:
TRANSCATHETER EDGE - TO - EDGE MITRAL VALVE REPAIR (JOSSUE)/MITRACLIP REPORT
Date: 07/08/2024
Referring: Chuy Bennett M.D.
Preoperative diagnosis: Severe degenerative mitral valve regurgitation with eccentric, posteriorly directed jet due to medial A2 malcoaptation.
Postoperative diagnosis: Severe degenerative mitral valve regurgitation with eccentric, posteriorly directed jet due to medial A2 malcoaptation.
Procedure(s): Transcatheter mitral valve edge to edge repair/MitraClip using 1 NTW.
Preprocedure MR severity: Severe, 3+.
Postprocedure MR severity: Mild/moderate, 1.5+.
Operators: Jagdeep Rose DO, Cherry Tarango M.D.
KESHIA Senior Manufacturing Engineer(s): Dhaval Vargas M.D.
Anesthesia: GETA provided by the anesthesia staff.
Estimated Blood Loss: Negligible.
Complications: None.
Condition: Stable.
PROCEDURE:
The patient was brought to the cardiac catheterization lab and anesthetized by the anesthesiology staff. A transesophageal probe was placed and preliminary echocardiography was performed. The patient was prepped and draped in standard sterile
fashion. The right common femoral vein was accessed using a modified Seldinger technique with a micropuncture kit under ultrasound guidance. The vein was dilated with an 8 Tajik dilator then preclosed with a Perclose percutaneous suture. And 8
Tajik sheath was placed in the femoral vein. Heparin 7000 units was given
The BrainMass VersaCross system was prepped on the back table. The J-wire for the versa cross was advanced into the superior vena cava and the 8 Tajik sheath was removed. The transseptal sheath was advanced over the wire and into the superior vena
cava. The J-wire was removed and the versa cross wire was advanced to the distal tip of the sheath, but remained within the dilator. This sheath was positioned in the interatrial septum with confirmed position on KESHIA. Transseptal puncture was
performed using electrocautery through the wire and the sheath was advanced into the left atrium. ACT was confirmed above 250 seconds. Oxygen saturation confirmed presence in the left atrium.
The MitraClip steerable sheath was prepped on the back table. The [place] sheath was withdrawn keeping the versa cross wire in the left atrium. The femoral vein was serially dilated and the steerable sheath was advanced through the vein, easily
crossing into the left atrium. Once we had satisfactory purchase of the sheath inside the left atrium the dilator and versa cross wire were removed and the steerable sheath was completely de-aired and flushed.
A(n) NTW MitraClip Delivery System was prepped on the back table. The clip was advanced through the steerable sheath and into the left atrium. The clip was oriented and advanced subvalvular to the mitral valve. Once we were satisfied with with
position, the grippers were lowered and the clip arms were tightened to 60 degrees. This demonstrated good position and clip stability. The clip was fully closed demonstrating reduction in mitral valve regurgitation, though accentuation of the
mitral regurgitation immediately medial to the clip. There was concern that a small cleft had been exacerbated by the presence of the clip. We evaluated the transvalvular gradient, noting that it was 2 mmHg. The mitral regurgitation was no worse
than previous so the decision was made to release the clip and consider a second clip. After clip release, the mitral valve was reexamined and the mitral regurgitation had been significantly reduced, now mild to moderate (1.5+). We suspected that
the tension on the clip had been responsible for the exacerbation of the medial cleft and release of the clip allow the mitral valve to reassume its natural position. Transvalvular gradient remained 2 mmHg. The delivery system was removed from the
steerable sheath.
The mitral valve was reevaluated. Mitral valve regurgitation was now graded at mild/moderate (1.5+). There was a slightly more prominent appearance of the extremely lateral jet, though it is unclear if this was due to a change in the mitral valve
architecture or if the relative reduction of the medial jet made the lateral jet appear more severe. Regardless, the jet was no worse than mild/moderate.
At this point, we were satisfied with our results. The steerable sheath was withdrawn into the right atrium, then negative tension was applied to straighten the catheter. The steerable sheath was withdrawn and the Perclose percutaneous suture was
tightened with good hemostasis.
The patient tolerated the procedure well, was brought out of anesthesia and transferred to the CVICU in stable condition.
IMPLANT(S)/POSITION:
1. NTW MitraClip on medial A2/P2.
RADIATION:
Dose (mGy): 265.88
DAP (cm2.Gy): 36.6077
Fluoroscopy time (minutes): 13.3
VALVE HEMODYNAMICS:
Preoperative
Left atrial pressure (a/v/x, mmHg): 36/54/32
MR severity (0-4): 3+
Transmitral gradient (mmHg): 2
Postoperative
Left atrial pressure (a/v/x, mmHg): 22/28/21
MR severity (0-4): 1.5+
Transmitral gradient (mmHg): 2
CONCLUSIONS:
1. Severe degenerative mitral valve regurgitation s/p successful JOSSUE using one NTW MitraClip with reduction in mitral regurgitation from 3+ to 1.5+ (mild/moderate) and a final mean transmitral gradient of 2 mmHg.
2. Acute on chronic heart failure with preserved ejection fraction (LVEDP = 31 mmHg, V wave to 54 mmHg).
3. Successful reduction of left atrial pressure with reduction of V wave from 54 mmHg to 28 mmHg.
RECOMMENDATIONS:
1. Routine post procedure care.
2. Transthoracic echocardiogram ordered for tomorrow morning.
3. Antithrombotic therapy with warfarin indefinitely due to known history of atrial fibrillation.
Jagdeep Rose DO, FACP, FACC
Copy to: Chuy Bennett M.D., Jose Vides D.O.
[2024-07-08] MEDS: ANCEF IV (10:54)
[2024-07-08] MEDS: ANCEF 10 IV (10:54)
--- NOTE | 2024-07-08 11:00 | PTCARENOTE ---
received patient from Computer Science Instructor RN. drowsy but easily arousable. AAOx3. Afib on monitor HR 70-90s. out on simple face mask, 100%, will wean as tolerated. Pulses by doppler. No edema noted. VSS. will contnue to monitor.
[2024-07-08] MEDS: LASIX 40 MG IV (13:11)
[2024-07-08] MEDS: NOVOLOG FLEXPEN-MODERATE RESISTANCE SC (13:11)
[2024-07-08 14:34] LABS: ACT-LR - POC > 397 Seconds (116-155)
[2024-07-08] MEDS: ANCEF 5 IV (16:41)
[2024-07-08] MEDS: LIPITOR 40 MG PO ×2 (16:41)
[2024-07-08] MEDS: FLOMAX 0.4 MG PO (16:41)
[2024-07-08] MEDS: GLUCOPHAGE 1000 MG PO (16:42)
[2024-07-08] MEDS: COUMADIN 5 MG PO (16:42)
--- NOTE | 2024-07-08 18:24 | ITS.CL.PN ---
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
Procedure
Procedure Note:
TRANSCATHETER EDGE - TO - EDGE MITRAL VALVE REPAIR (JOSSUE)/MITRACLIP REPORT
Date: July 08, 2024
Referring: Chuy Bennett
Preoperative diagnosis: Severe eccentric degenerative mitral valve regurgitation
Postoperative diagnosis: Severe eccentric degenerative mitral valve regurgitation
Procedure(s): Transcatheter mitral valve edge to edge repair/MitraClip using ONE NTW
Preprocedure MR severity: Severe, 3+
Postprocedure MR severity: Mild to moderate, 1.5+
Interventional Cardiology Operators: Drs. Cherry Tarango (trans-septal puncture), and Jagdeep Rose (clip delivery)
KESHIA Belt Loop Cutter(s): Miguel Vargas.
Anesthesia: GETA provided by the anesthesia staff.
Estimated Blood Loss: Minimal
Complications: None.
Condition: Stay.
PROCEDURAL DETAILS:
The patient was brought to the cardiac catheterization lab and anesthetized by the anesthesiology staff. A transesophageal probe was placed and preliminary echocardiography was performed. The patient was prepped and draped in standard sterile
fashion. The right common femoral vein was accessed using a modified Seldinger technique with a micropuncture kit under ultrasound guidance. The vein was dilated with an 8 Greek dilator then preclosed with a Perclose percutaneous suture. And 8
Greek sheath was placed in the femoral vein. Heparin 5000 units was given.
The Twice VersaCross system was prepped on the back table. The J-wire for the versa cross was advanced into the superior vena cava and the 8 Greek sheath was removed. The transseptal sheath was advanced over the wire and into the superior vena
cava. The J-wire was removed and the versa cross wire was advanced to the distal tip of the sheath, but remained within the dilator. This sheath was positioned in the interatrial septum with confirmed position on KESHIA. Transseptal puncture was
performed by Dr. Jagdeep Rose and the sheath was advanced into the left atrium. Additional heparin was given to achieve a therapeutic ACT. ACT was confirmed above 250 seconds. Oxygen saturation confirmed presence in the left atrium.
The MitraClip steerable sheath was prepped on the back table. The [place] sheath was withdrawn keeping the versa cross wire in the left atrium. The femoral vein was serially dilated and the steerable sheath was advanced through the vein, easily
crossing into the left atrium. Once we had satisfactory purchase of the sheath inside the left atrium the dilator and versa cross wire were removed and the steerable sheath was completely de-aired and flushed.
A(n) NTW MitraClip Delivery System was prepped on the back table. The clip was advanced through the steerable sheath and into the left atrium. The clip was oriented and advanced subvalvular to the mitral valve. Once we were satisfied with with
position, the grippers were lowered and the clip arms were tightened to 60 degrees. This demonstrated good position and clip stability. The clip was fully closed demonstrating good tissue bridge and moderate mitral regurgitation laterally.
Transvalvular gradient was 2mmHG. We were satisfied with these preliminary results and the clip was deployed. The delivery system was removed from the steerable sheath.
The mitral valve was reevaluated. Mitral valve regurgitation was now graded at mild to moderate with the lateral jet we were initially appreciating significantly improved likely due to tension being released from the delivery system after the
MitraClip was released. Mitral valve regurgitation continue to remain stable at mild to moderate with good systemic blood pressure, good tissue bridge on 3D imaging and stable mitral valve gradient at 2 mmHg. No pericardial effusion was noted.
Invasive hemodynamics revealed significant reduction in V waves down to 28 mmHg from 54 mmHg pre-MitraClip.
At this point, we were satisfied with our results. The steerable sheath was withdrawn into the right atrium, then negative tension was applied to straighten the catheter. The steerable sheath was withdrawn and the Perclose percutaneous suture was
tightened with good hemostasis.
The patient tolerated the procedure well, was brought out of anesthesia and transferred to the CVICU in stable condition.
IMPLANT(S)/POSITION:
1. NTW MitraClip on medial aspect of A2/P2
RADIATION: Dose (mGy): 13.3; DAP (cm2.Gy): 265.88; Fluoroscopy time (minutes): 36.6
VALVE HEMODYNAMICS:
Preoperative
MR severity (0-4): 3+
Transmitral gradient (mmHg): 2
Postoperative
MR severity (0-4): 1.5+
Transmitral gradient (mmHg): 2
CONCLUSIONS:
1. Severe eccentric degenerative mitral valve regurgitation s/p successful JOSSUE using one NTW with reduction in mitral regurgitation from severe eccentric to mild to moderate and a final mean transmitral gradient of 2mmHg.
2. Acute on chronic heart failure with preserved ejection fraction (LVEDP = 31 mmHg, V wave to 54 mmHg).
3. Successful reduction of left atrial pressure with reduction of V wave from 54 mmHg to 28 mmHg.
RECOMMENDATIONS:
1. Routine post procedure care.
2. Transthoracic echocardiogram ordered for tomorrow morning.
3. Antithrombotic therapy with warfarin indefinitely due to known history of atrial fibrillation
Cherry Tarango MD, [facility], [facility]
Copy to: Chuy Bennett MD and Jose Vides DO
[2024-07-08 18:50] LABS: Glucose - Point of Care 224 mg/dl (70-99)
[2024-07-08] MEDS: NOVOLOG FLEXPEN-MODERATE RESISTANCE 3 UNITS SC (18:50)
--- NOTE | 2024-07-08 20:00 | PTCARENOTE ---
assumed care of pt from previous RN. pt A&Ox4, resting in chair at time of assessment. no c/o pain at this time. a fib on tele-monitor, occasional PVCs. 92-93% on RA. abd s/n, +BS. voiding clear, yellow urine in urinal. surgical sites stable, CDI.
PIV x2 intact. see worklist for complete nursing assessment, interventions, VS, and I&Os.
[2024-07-08 21:55] LABS: Glucose - Point of Care 232 mg/dl (70-99)
[2024-07-08] MEDS: TOPROL XL PO (22:07)
[2024-07-08] MEDS: ANESTHETIC LOZENGE 1 LOZENGE PO (22:20)
[2024-07-08] MEDS: TOPROL XL 25 MG PO (22:20)
[2024-07-09] VITALS (12 sets, daily range): BP systolic 111–150; BP diastolic 52–97; PULSE 76; O2SAT 92–96; BMI 29.0
--- NOTE | 2024-07-09 | PTCARENOTE ---
assessment remains unchanged. POX 85% on CPAP. RT placed 4 L O2 through pt's home CPAP. POX 94-96%. a fib on tele-monitor.
[2024-07-09] MEDS: ANCEF 5 IV (00:44)
--- NOTE | 2024-07-09 03:57 | PTCARENOTE ---
no acute changes. AM labs collected and sent.
[2024-07-09 04:00] LABS: Hematocrit 31.2 % (39.0-52.0); Hemoglobin 10.2 g/dL (13.0-18.0); Mean Corp Hgb Conc. 32.7 g/dL (33.0-37.0); Mean Corpuscular Hgb 32.3 pg (27.0-31.0); Mean Corpuscular Volume 98.7 fL (80.0-94.0); Mean Platelet Volume 12.2 fL (7.4-10.4); Platelet Count 127 10^3/uL (130-400); Red Blood Cell Count 3.16 10^6/uL (4.70-6.10); Red Cell Dist. Width 15.5 % (11.5-14.5); White Blood Cell Count 10.1 10^3/uL (4.8-10.8)
[2024-07-09 04:13] LABS: INR 1.54
[2024-07-09 04:26] LABS: Blood Urea Nitrogen 39 mg/dl (9-20); Calcium 9.4 mg/dl (8.4-10.2); Carbon Dioxide 27 mmol/L (22-30); Chloride 103 mmol/L (98-107); Estimated Creatinine Clearance 53 ml/min; Glucose 160 mg/dl (70-99); Magnesium 2.1 mg/dl (1.6-2.3); Potassium 4.6 mmol/L (3.5-5.1); Sodium 139 mmol/L (135-145); eGFR > 60.00
[2024-07-09 07:43] LABS: Glucose - Point of Care 173 mg/dl (70-99)
--- NOTE | 2024-07-09 08:00 | PTCARENOTE ---
received patient at change of shift OOB in chair resting comfortably. AAOX3. pt denies pain. right groin site CDI. Afib on telemetry heart rate 70s. pulses palpable. trace lower extremity edema. pt on room air sat 92%. lung sounds diminished in
bases. active bowel sounds, tolerating diet. voiding in urinal no issues. pt updated on plan of care. see worklist for full nursing assessment and interventions.
[2024-07-09] MEDS: NOVOLOG FLEXPEN-MODERATE RESISTANCE 1 UNITS SC (08:08)
[2024-07-09] MEDS: LASIX 80 MG PO (08:09)
[2024-07-09] MEDS: GLUCOPHAGE 1000 MG PO (08:09)
[2024-07-09] MEDS: ASPIR LOW (ENTERIC COATED) 81 MG PO (08:09)
[2024-07-09] MEDS: TOPROL XL 50 MG PO (08:09)
[2024-07-09] MEDS: AMARYL 1 MG PO (08:10)
[2024-07-09] MEDS: JANUVIA 100 MG PO (08:10)
--- NOTE | 2024-07-09 09:12 | W.PN.CD ---
Today's Communication / Plan
-
Echo pending.
Start dapagliflozin 10 mg daily.
Case management consult.
Discharge planning.
Impression / Plan
-
Impression/Plan: 89 y/o male with atrial fibrillation on warfarin, moderate aortic valve stenosis, moderate tricuspid regurgitation and severe degenerative mitral valve regurgitation with chronic HFpEF (LVEF 50-55%) admitted for elective
JOSSUE/MitraClip.
#Severe degenerative mitral regurgitation
-Chronic, progressive.
-S/P one NTW MitraClip to the medial aspect of A2/P2 with reduction in MR from severe (3+) to mild/moderate (1.5+).
-Repeat echocardiogram this morning.
-Assuming no significant aberrations, tentative plan for discharge today.
#Permanent atrial fibrillation
-Chronic.
-Currently in AF.
-Rate control with home metoprolol.
-CHADS2-Vasc = 3 (CHF, Age x2).
-Home warfarin restarted. Goal INR 2-3.
#HFpEF
-Acute on chronic.
-LAP = 31 mmHg with a V wave to 54 mmHg at the time of clip.
-IV furosemide given and home PO furosemide restarted.
-Continue metoprolol.
-Start dapagliflozin 10 mg daily.
-Case management consult.
#Moderate
-Chronic.
-Continue surveillance.
#PPX
-DVT/VTE prophylaxis with warfarin.
-No role for PPI.
#Dispo
-CVICU status.
-Full code.
-Discharge planning.
Subjective/Interval History:
MitraClip yesterday.
Weight up 0.5 kg.
SO2 = 92% on RA.
DATA:
JOSSUE/MitraClip, 07/08/2024:
CONCLUSIONS:
1. Severe degenerative mitral valve regurgitation s/p successful JOSSUE using one NTW MitraClip with reduction in mitral regurgitation from 3+ to 1.5+ (mild/moderate) and a final mean transmitral gradient of 2 mmHg.
2. Acute on chronic heart failure with preserved ejection fraction (LVEDP = 31 mmHg, V wave to 54 mmHg).
3. Successful reduction of left atrial pressure with reduction of V wave from 54 mmHg to 28 mmHg.
Intraprocedural KESHIA, 07/08/2024:
CONCLUSIONS
Normal left ventricular chamber size. Normal left ventricular systolic
function. Normal regional wall motion. Mild concentric left ventricular
hypertrophy. Left ventricular ejection fraction is 55%.
Normal right ventricular size and function.
Severely dilated left atrium.
Mildly dilated right atrium.
Pre-clip: Thickened mitral valve leaflets with moderate mitral annular
calcification. Severe eccentric mitral regurgitation present at the A2/A3
junction. Mean gradient 2 mmHg
Post Clip: An NT W clip was placed with no complications. There was 2 small
jets of mild to moderate residual mitral regurgitation present. Mean gradient
post clip deployment 2 mmHg.
Thickened aortic valve with restricted leaflet motion. Moderate to severe
aortic stenosis. Trace aortic regurgitation.
Moderate tricuspid regurgitation.
Physical Exam
Vital Signs/Labs
Vital Signs
Temp Pulse Resp BP Pulse Ox
36.8 C 94 16 126/74 92
07/09/24 08:00 07/09/24 08:09 07/09/24 08:00 07/09/24 08:09 07/09/24 08:00
07/07/24 07/08/24 07/09/24
11:59 11:59 11:59
Actual Weight 76.2 kg 76.7 kg
07/09/24 03:40
07/09/24 03:40
PT 19.0 Sec (11.4-14.6) H 07/09/24 03:40
INR 1.54 07/09/24 03:40
APTT 39.5 Sec (23.4-35.0) H 07/01/24 12:19
Magnesium 2.1 mg/dl (1.6-2.3) 07/09/24 03:40
07/01/24
12:19
[id number] Pept 1410
Physical Exam
Constitutional: No acute distress and Comfortable
EENT: Anicteric and Moist mucous membranes
Cardiovascular: Pedal edema is absent, JVD pressure is normal and Rhythm/rate is irregular
Respiratory: Respiratory effort normal, Lungs clear to auscul., Wheeze Absent, Crackles Absent and Rhonchi Absent
GI: Soft, Distention absent, Flat, Non tender and Normal bowel sounds
Neuro/Psych: AO x 3
Other: Cath Site (Right femoral venous access site is C/D/I.)
Data Reviewed
-
Date of Service: July 09, 2024
Medical Decision Making: Reviewed Test Results, Independent Historian Assessment and Test Interpretation
EKG: Tracing Personally Visualized and interpreted and Report Reviewed by me
Echo: Tracing Personally Visualized and interpreted, Report Reviewed by me and Ordered by me
X-Ray/CT/US/MRI/NUC/PET: Image Personally Visualized and interpreted and Report Reviewed by me
Labs: Labs Reviewed by me
Old Records: Reviewed
--- NOTE | 2024-07-09 09:39 | W.PN.ANS.POP ---
Anesthesia Post Operative
- Anesthesia Post Op Note
Vital Signs Stable-See Nursing Note: Yes
Airway Patent: Yes
Adequate Pain Control: Yes
Change in Mental Status: No
Current Postoperative Nausea & Vomiting: No
Anesthesia Complications: No
General Anesthetic Recall: No
Unplanned Admission: No
Post Op Hydration Adequate: Yes
--- NOTE | 2024-07-09 12:03 | CM ---
Reviewed chart. Met with and Mrs Solis to review discharge plans. He states he is feeling well and maybe able to go home soon. He states he ambulated in the hallway and did the stairs. Telephone call to [facility] to check on co-pay for
Farxiga 10 mg po daily. His co-pay is $47.00 a month. Reviewed co-pay with him. He is agreeable to the co-pay. Placed the one month free coupon in his red discharge folder. Prior to admission he resides with his spouse in a second floor condo with
fourteen styeps to enter. Prior to admission he was independent with ambulation in the house and uses a single point cane in the community. He is independent with in ADLs. He has a single point cane, walker and CPAP Machine at home. He has a
prescription plan and uses [facility]. His spouse will be home to assist in his care if needed. We reviewed a home visit by the Transitional Care Nurse. He is agreeable to a home visit. Medical work-up in progress. The discharge plan is to
return home with his spouse and a home visit by the Transitional Care Nurse when medically stable.
[2024-07-09] MEDS: FARXIGA 10 MG PO (12:08)
--- NOTE | 2024-07-09 12:32 | W.DS.TRANS ---
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
-
Discharge Instructions:
Discharge Diagnosis/Procedures Severe mitral reguritation post Mitraclip
Diet Low Fat,Low Cholesterol,2 Gram Sodium
Activity As tolerated
Driving Restrictions No driving for 1 week
Bathing Restrictions OK to Shower
Blood Work Check INR per cardiology instructions
Others Tests Your 30-day follow up echocardiogram: 08/05 @ 10:
20am at [facility]
Your 6-month follow up echocardiogram: 01/05 @ 10
:20am at [facility]
Other Services Cardiac Rehab
Wound Care NO lotions, powders, or creams to puncture sites
.
Specialty Instructions Weigh Daily
Instructions: Dapagliflozin
Stand-Alone Forms: DC Instructions- Cath/EP Lab
Changes to Home Medications: Yes
Discharge Medications:
DC Medications w/original date entered in [employer]
atorvastatin 40 mg tablet 40 mg PO QPM High cholesterol 11/24/12
tamsulosin 0.4 mg capsule 0.4 mg PO QPM Urinary issue 01/16/19
diazepam 5 mg tablet 2.5 mg PO DAILY PRN anxiety 12/27/20
glimepiride 1 mg tablet 1 mg PO DAILY Diabetes 12/27/20
metformin 1,000 mg tablet 1,000 mg PO BID Diabetes 12/27/20
sitagliptin phosphate 100 mg tablet (Januvia) 100 mg PO DAILY Diabetes 12/27/20
nitroglycerin 0.4 mg sublingual tablet 0.4 mg sublingual [id number] PRN chest pain #25 tabs 09/08/21
cholecalciferol (vitamin D3) 10 mcg (400 unit) chewable tablet (Vitamin D3) 10 mcg PO DAILY Supplement 02/19/22
multivitamin 1 tab PO DAILY Supplement 02/19/22
warfarin 5 mg tablet 5 mg PO [facility] Blood clot prevention/tx 09/26/22
aspirin 81 mg tablet,delayed release 81 mg PO DAILY Blood Clot Prevention/Tx 04/01/24
metoprolol succinate 50 mg tablet,extended release 24 hr 50 mg PO BID Heart Disease/Condition 04/01/24
simethicone 125 mg tablet 125 mg PO DAILY PRN gas/bloating 04/01/24
warfarin 5 mg tablet 2.5 mg PO TU Blood Clot Prevention/Tx 04/01/24
furosemide 80 mg tablet 80 mg PO DAILY Fluid Retention/Swelling 06/25/24
dapagliflozin propanediol 10 mg tablet (Farxiga) 10 mg PO DAILY #90 tabs 07/09/24
Home Medication Changes
new to farxiga
Pending Results: No
[2024-07-09 12:41] LABS: Glucose - Point of Care 91 mg/dl (70-99)
[2024-07-09] MEDS: NOVOLOG FLEXPEN-MODERATE RESISTANCE SC (12:43)
== END 2024-07-09 15:47 | disposition home or self-care (01) | DRG 266 ==
LOC: CVICU 05:59
PROVIDERS: Nurse Practitioner Adult Health; ADMITTING PHYSICIAN Internal Medicine Cardiovascular Disease; FAMILY PHYSICIAN Family Medicine; OTHER PHYSICIAN Internal Medicine Cardiovascular Disease
PROC: B24BZZ4 Ultrasonography of Heart with Aorta, Transesophageal (ICD-10-PCS; 2024-07-08)
PROC: 02UG3JZ Supplement Mitral Valve with Synthetic Substitute, Percutaneous Approach (ICD-10-PCS; 2024-07-08)
DX: I34.0 Nonrheumatic mitral (valve) insufficiency (principal); Z00.6 Encounter for examination for normal comparison and control in clinical research program; I50.33 Acute on chronic diastolic (congestive) heart failure; I48.21 Permanent atrial fibrillation; Q21.12 Patent foramen ovale; I25.10 Atherosclerotic heart disease of native coronary artery without angina pectoris; I11.0 Hypertensive heart disease with heart failure; E78.00 Pure hypercholesterolemia, unspecified; E11.9 Type 2 diabetes mellitus without complications; G47.33 Obstructive sleep apnea (adult) (pediatric); H91.92 Unspecified hearing loss, left ear; F41.1 Generalized anxiety disorder; F51.04 Psychophysiologic insomnia; N40.0 Benign prostatic hyperplasia without lower urinary tract symptoms; Z79.01 Long term (current) use of anticoagulants; Z79.82 Long term (current) use of aspirin; Z79.84 Long term (current) use of oral hypoglycemic drugs; Z79.899 Other long term (current) drug therapy; Z87.891 Personal history of nicotine dependence; Z98.61 Coronary angioplasty status
CPT/HCPCS: 93308; 33418; 36415; 71046; 80048; 80053; 81003; 81015; 82248; 82962; 83036; 83735; 83880; 85025; 85027; 85347; 85610; 85730; 86850; 86900; 86901; 86920; 87070; 93005; 93321; 93325; 93355; C1760; C1894

== ENCOUNTER 2024-07-11 11:14 | Emergency (ER) | payer MEDICARE, SELFPAY ==
[2024-07-11 11:16] VITALS: BP 148/78
--- NOTE | 2024-07-11 11:41 | ED.GENMED ---
History of Present Illness
General
Chief Complaint: Bowel Problem
Source: patient
Exam Limitations: none
Time Seen by Provider: 07/11/24 11:39
Nursing documentation reviewed up to this point in time: agreed with
History of Present Illness
History of Present Illness:
Patient is a 81-year-old male presents to the ER for constipation. Patient status post cardiac procedure done 07/08/2024 and complains of constipation and has not moved his bowels since then. He denies any nausea vomiting. He has tried MiraLAX and
milk of magnesia. He denies any actual abdominal pain he does feel bloated. Denies any nausea vomiting.
Past History
Past History
ED Past Medical History: Arrthythmia, CAD, CHF, NIDDM and Valvular disease
ED Past Surgical History: Cardiac (stents) and Other
Social History
Tobacco: Non-smoker
Alcohol: Occasional
Drug: None
Personal:
Living: with family
Employment: Employed
Family History
Family History: Other (non contribotory)
Review of Systems
Review of Systems
Allergies reviewed?: Yes
All Other Systems: ROS reviewed and negative except as documented in HPI and ROS
Constitutional: Reports no symptoms
ABD/GI: Reports constipated; Denies abdominal pain, nausea, vomiting or diarrhea
: Reports no symptoms
Musculoskeletal: Reports no symptoms
Skin: Reports no symptoms
Psychiatric: Reports no symptoms
Phy Exam
General Physical Exam
General Presentation: no apparent distress
General age: appears stated age
General Skin: warm and dry
General Habitus: normal
General Mental: alert
General Hydration: appears well hydrated
Gastrointestinal Exam
Gastrointestinal Exam: normal bowel sounds, non tender, soft and other (rectal exam; small amt of stool in rectum (higher up in rectum) brown heme positive)
Neurological Exam
Neurological Exam: alert and oriented x3
Musculoskeletal Exam
Musculoskeletal Exam: full ROM
Skin Exam
Skin Exam: normal color and warm/dry
Psychiatric Exam
Psychiatric Exam: normal mood/affect
Course
Orders/Labs/Results
Orders:
Orders
07/11/24 11:48
Obstruct Series W/PA Chest [CR Obstruct Series W/pa Chest] Urgent
Comment:
Reason For Exam: constipation
07/11/24 13:12
Enema- Treatment ONCE
Type: Soap Suds
Vital Signs
Initial and Last Documented VS:
Initial Vital Signs
Temp Pulse Resp BP Pulse Ox
98.8 F 74 16 148/78 97
07/11/24 11:16 07/11/24 11:16 07/11/24 11:16 07/11/24 11:16 07/11/24 11:16
Last Documented Vital Signs
Temp Pulse Resp BP Pulse Ox
98.8 F 71 16 135/77 98
07/11/24 11:16 07/11/24 13:45 07/11/24 13:45 07/11/24 13:45 07/11/24 13:45
MDM/Problems Addressed
Differential Diagnosis Includes:
Not limited to constipation, obstruction less likely
MDM/Problems Addressed:
Patient presented with constipation x-ray shows moderate stool no vomiting no evidence of bowel obstruction. Patient received a enema here and had successful reduction of stool feeling much better constipation structures reviewed patient stable for
discharge home stable little since
*Critical Care Note
Total Time (30-74mins, 75-104mins- exclusive of procedures): Not Applicable
ED Attending Note
-
Portions of this chart may have been created with voice recognition software.� Occasional wrong word or��sound alike� substitutions may have occurred due to the inherent limitations of voice recognition software.
Discharge Plan
Departure
Patient Disposition: Home (Routine Discharge)
Date of Disposition: 07/11/24
Time of Disposition: 14:06
Patient with high blood pressure during this ER visit?: Yes
Condition: Fair
Covid-19: Not Applicable
Discharge Problem:
Acute constipation
Instructions: Constipation, Adult (DC), BLOOD PRESSURE
Prescriptions:
No Action
atorvastatin 40 MG tablet
40 mg PO QPM
tamsulosin 0.4 MG capsule
0.4 mg PO QPM
glimepiride 1 MG tablet
1 mg PO DAILY
metformin 1,000 MG tablet
1,000 mg PO BID
diazepam 5 MG tablet
2.5 mg PO DAILY PRN (Reason: anxiety)
Januvia 100 MG tablet
100 mg PO DAILY
nitroglycerin 0.4 MG tablet, sublingual
0.4 mg sublingual [id number] PRN (Reason: chest pain) Qty: 25 3RF
multivitamin Tablet
1 tab PO DAILY
cholecalciferol (vitamin D3) [Vitamin D3] 10 mcg (400 unit) Tablet,Chewable
10 mcg PO DAILY
warfarin 5 mg tablet
5 mg PO SUMOWETHFRSA
aspirin 81 mg Tablet,Delayed Release (Dr/Ec)
81 mg PO DAILY
warfarin 5 mg Tablet
2.5 mg PO TU
simethicone 125 mg Tablet
125 mg PO DAILY PRN (Reason: gas/bloating)
metoprolol succinate 50 MG tablet extended release 24 hr
50 mg PO BID
furosemide 80 mg tablet
80 mg PO DAILY
dapagliflozin propanediol [Farxiga] 10 mg tablet
10 mg PO DAILY Qty: 90 5RF
Referrals:
Jose Vides DO [Family Provider] -
Activity Restrictions/Additional Instructions:
As discussed please continue MiraLAX daily and add [id number] Colace as a stool softener.
Be sure to increase water intake avoid constipating foods such as bananas breads and pasta. Increase fiber in your diet such as fresh fruits and vegetables.
You may try prune juice.
Follow-up with your family doctor next several days return if any worsening of symptoms
Interventions
Interventions:
*Risk Screen - Suicide Last Done: 07/11/24 11:19
*Neglect/Abuse Screening Last Done: 07/11/24 11:19
*Nursing Disposition Last Done: 07/11/24 14:21
SP-Ibkqmc-[id number] Assessment Last Done: 07/11/24 13:00
Discharge Date and Time
Discharge Date/Time: 07/11/24 14:22
Print Language: VINCENTIAN
[2024-07-11 13:45] VITALS: BP 135/77
== END 2024-07-11 14:22 | disposition home or self-care (01) ==
LOC: EMR 11:14
PROVIDERS: EMERGENCY PHYSICIAN Emergency Medicine; FAMILY PHYSICIAN Family Medicine
DX: K59.00 Constipation, unspecified (principal); I25.10 Atherosclerotic heart disease of native coronary artery without angina pectoris; I50.9 Heart failure, unspecified; E11.9 Type 2 diabetes mellitus without complications; Z95.5 Presence of coronary angioplasty implant and graft; I38 Endocarditis, valve unspecified
CPT/HCPCS: 99283; 74022

== ENCOUNTER → 2024-07-15 12:48 | Outpatient (REF) | payer MEDICARE, SELFPAY ==
[2024-07-15 14:14] LABS: INR 1.65
== END ==
LOC: REG 12:48
PROVIDERS: ATTENDING PHYSICIAN Internal Medicine Cardiovascular Disease; FAMILY PHYSICIAN Family Medicine
DX: I48.21 Permanent atrial fibrillation (principal)
CPT/HCPCS: 36415; 85610

== ENCOUNTER → 2024-07-22 14:31 | Outpatient (REF) | payer MEDICARE, SELFPAY ==
[2024-07-22 15:14] LABS: INR 1.99
== END ==
LOC: REG 14:31
PROVIDERS: ATTENDING PHYSICIAN Internal Medicine Cardiovascular Disease; FAMILY PHYSICIAN Family Medicine
DX: I48.21 Permanent atrial fibrillation (principal)
CPT/HCPCS: 36415; 85610

== ENCOUNTER → 2024-07-28 14:37 | Outpatient (REF) | payer MEDICARE, SELFPAY ==
[2024-07-28 15:14] LABS: INR 2.01; PT 22.9 Sec (11.4-14.6)
== END ==
LOC: REG 14:37
PROVIDERS: ATTENDING PHYSICIAN Internal Medicine Cardiovascular Disease; FAMILY PHYSICIAN Family Medicine
DX: I48.21 Permanent atrial fibrillation (principal)
CPT/HCPCS: 36415; 85610

== ENCOUNTER → 2024-08-05 10:12 | Outpatient (REF) | payer MEDICARE, SELFPAY ==
[2024-08-05 11:41] LABS: PT 24.9 Sec (11.4-14.6)
== END ==
LOC: RCS 10:12
PROVIDERS: ATTENDING PHYSICIAN Internal Medicine Cardiovascular Disease; FAMILY PHYSICIAN Family Medicine
DX: I34.0 Nonrheumatic mitral (valve) insufficiency (principal)
CPT/HCPCS: 36415; 85610; 93306

== ENCOUNTER → 2024-08-12 15:26 | Outpatient (REF) | payer MEDICARE, SELFPAY ==
[2024-08-12 17:07] LABS: INR 2.08; PT 23.9 Sec (11.4-14.6)
== END ==
LOC: REG 15:26
PROVIDERS: ATTENDING PHYSICIAN Internal Medicine Cardiovascular Disease; FAMILY PHYSICIAN Family Medicine
DX: I48.21 Permanent atrial fibrillation (principal)
CPT/HCPCS: 36415; 85610

== ENCOUNTER → 2024-08-31 15:49 | Outpatient (REF) | payer MEDICARE, SELFPAY ==
[2024-08-31 16:56] LABS: % Basophils 0.7 % (0-2); % Eosinophils 6.9 % (0-6); % Immature Granulocytes 0.3 % (0-0.5); % Lymphocytes 22.5 % (20.5-51.1); % Monocytes 8.6 % (1.7-9.3); Absolute Basophils 0.1 10^3/uL (0-0.2); Absolute Eosinophils 0.5 10^3/uL (0-0.7); Absolute Lymphocytes 1.6 10^3/uL (1.2-3.4); Absolute Monocytes 0.6 10^3/uL (0.1-0.6); Absolute Neutrophils 4.3 10^3/uL (1.4-6.5); Hematocrit 38.7 % (39.0-52.0); Hemoglobin 12.9 g/dL (13.0-18.0); Mean Corp Hgb Conc. 33.3 g/dL (33.0-37.0); Mean Corpuscular Hgb 32.9 pg (27.0-31.0); Mean Corpuscular Volume 98.7 fL (80.0-94.0); Mean Platelet Volume 12.1 fL (7.4-10.4); Nucleated Red Blood Cells % 0 % (-); Platelet Count 132 10^3/uL (130-400); Red Blood Cell Count 3.92 10^6/uL (4.70-6.10); Red Cell Dist. Width 14.1 % (11.5-14.5); White Blood Cell Count 7.1 10^3/uL (4.8-10.8)
[2024-08-31 17:09] LABS: HDL Cholesterol 43 mg/dl; LDL Cholesterol, Calculated 56 mg/dl; Total Cholesterol 130 mg/dl (50-199); Triglyceride 155 mg/dl (10-149); Very Low Density Lipoprotein 31 mg/dl (0-30)
[2024-08-31 17:42] LABS: PSA, Total - Screen 1.19 ng/ml (0.0-4.0)
== END ==
LOC: REG 15:49
PROVIDERS: ATTENDING PHYSICIAN Family Medicine
DX: D53.9 Nutritional anemia, unspecified (principal); Z12.5 Encounter for screening for malignant neoplasm of prostate; E78.5 Hyperlipidemia, unspecified
CPT/HCPCS: 36415; 80061; 85025; G0103

== ENCOUNTER 2024-09-09 15:08 | Outpatient (RCR) | payer MEDICARE, SELFPAY ==
[2024-08-14 14:51] LABS: Glucose - Point of Care 90 mg/dl (70-99)
[2024-08-14 15:28] LABS: Glucose - Point of Care 155 mg/dl (70-99)
[2024-08-17 14:41] LABS: Glucose - Point of Care 150 mg/dl (70-99)
[2024-08-17 15:47] LABS: Glucose - Point of Care 127 mg/dl (70-99)
[2024-08-19 14:55] LABS: Glucose - Point of Care 117 mg/dl (70-99)
[2024-08-19 15:23] LABS: Glucose - Point of Care 108 mg/dl (70-99)
[2024-08-21 14:37] LABS: Glucose - Point of Care 148 mg/dl (70-99)
[2024-08-21 15:31] LABS: Glucose - Point of Care 123 mg/dl (70-99)
[2024-08-26 14:55] LABS: Glucose - Point of Care 138 mg/dl (70-99)
[2024-08-26 15:52] LABS: Glucose - Point of Care 134 mg/dl (70-99)
[2024-08-28 14:34] LABS: Glucose - Point of Care 132 mg/dl (70-99)
[2024-08-28 15:34] LABS: Glucose - Point of Care 132 mg/dl (70-99)
[2024-08-31 14:38] LABS: Glucose - Point of Care 136 mg/dl (70-99)
[2024-08-31 15:37] LABS: Glucose - Point of Care 135 mg/dl (70-99)
== END 2024-09-09 23:59 | disposition home or self-care (01) ==
LOC: CRHB 15:08
PROVIDERS: ATTENDING PHYSICIAN Internal Medicine Cardiovascular Disease; FAMILY PHYSICIAN Family Medicine
DX: Z95.4 Presence of other heart-valve replacement (principal)
CPT/HCPCS: 82962; G0422; G0423

== ENCOUNTER → 2024-09-09 16:23 | Outpatient (REF) | payer MEDICARE, SELFPAY ==
[2024-09-09 16:59] LABS: % Basophils 0.8 % (0-2); % Eosinophils 6.6 % (0-6); % Immature Granulocytes 0.3 % (0-0.5); % Lymphocytes 20.3 % (20.5-51.1); % Monocytes 9.4 % (1.7-9.3); % Neutrophils 62.6 % (42.2-75.2); Absolute Basophils 0.1 10^3/uL (0-0.2); Absolute Eosinophils 0.5 10^3/uL (0-0.7); Absolute Lymphocytes 1.5 10^3/uL (1.2-3.4); Absolute Monocytes 0.7 10^3/uL (0.1-0.6); Absolute Neutrophils 4.5 10^3/uL (1.4-6.5); Hematocrit 38.6 % (39.0-52.0); Hemoglobin 13.1 g/dL (13.0-18.0); Mean Corp Hgb Conc. 33.9 g/dL (33.0-37.0); Mean Corpuscular Hgb 32.3 pg (27.0-31.0); Mean Corpuscular Volume 95.3 fL (80.0-94.0); Mean Platelet Volume 11.5 fL (7.4-10.4); Nucleated Red Blood Cells % 0 % (-); Platelet Count 135 10^3/uL (130-400); Red Blood Cell Count 4.05 10^6/uL (4.70-6.10); Red Cell Dist. Width 14.1 % (11.5-14.5); White Blood Cell Count 7.3 10^3/uL (4.8-10.8)
[2024-09-09 17:23] LABS: INR 2.13; PT 24.3 Sec (11.4-14.6)
== END ==
LOC: REG 16:23
PROVIDERS: ATTENDING PHYSICIAN Internal Medicine Cardiovascular Disease; FAMILY PHYSICIAN Family Medicine
DX: I48.21 Permanent atrial fibrillation (principal); D53.9 Nutritional anemia, unspecified
CPT/HCPCS: 36415; 85025; 85610

== ENCOUNTER → 2024-09-21 15:06 | Outpatient (REF) | payer MEDICARE, SELFPAY | LOC: RAD 15:06 | PROVIDERS: ATTENDING PHYSICIAN Physician Assistant Medical | DX: M79.18 Myalgia, other site (principal) | CPT/HCPCS: 72202; 72220; 73502 ==

== ENCOUNTER → 2024-10-07 16:15 | Outpatient (REF) | payer MEDICARE, SELFPAY ==
[2024-10-07 17:20] LABS: PT 22.3 Sec (11.4-14.6)
[2024-10-07 17:45] LABS: PSA, Total - Screen 1.25 ng/ml (0.0-4.0)
== END ==
LOC: REG 16:15
PROVIDERS: ATTENDING PHYSICIAN Internal Medicine Cardiovascular Disease; FAMILY PHYSICIAN Family Medicine
DX: Z12.5 Encounter for screening for malignant neoplasm of prostate (principal); I48.21 Permanent atrial fibrillation; I34.0 Nonrheumatic mitral (valve) insufficiency
CPT/HCPCS: 36415; 85610; G0103

== ENCOUNTER 2024-10-09 14:49 | Outpatient (RCR) | payer MEDICARE, SELFPAY | END 2024-10-09 23:59 | disposition home or self-care (01) | LOC: CRHB 14:49 | PROVIDERS: ATTENDING PHYSICIAN Internal Medicine Cardiovascular Disease; FAMILY PHYSICIAN Family Medicine | DX: Z95.4 Presence of other heart-valve replacement (principal); I25.10 Atherosclerotic heart disease of native coronary artery without angina pectoris (principal); Z95.5 Presence of coronary angioplasty implant and graft | CPT/HCPCS: G0422; G0423 ==

== ENCOUNTER → 2024-10-19 16:22 | Outpatient (REF) | payer MEDICARE, SELFPAY ==
[2024-10-19 17:25] LABS: INR 2.69; PT 28.5 Sec (11.4-14.6)
== END ==
LOC: REG 16:22
PROVIDERS: ATTENDING PHYSICIAN Internal Medicine Cardiovascular Disease; FAMILY PHYSICIAN Family Medicine
DX: I48.21 Permanent atrial fibrillation (principal)
CPT/HCPCS: 36415; 85610

== ENCOUNTER 2024-11-06 15:30 | Outpatient (RCR) | payer MEDICARE, SELFPAY | END 2024-11-06 23:59 | disposition home or self-care (01) | LOC: CRHB 15:30 | PROVIDERS: ATTENDING PHYSICIAN Internal Medicine Cardiovascular Disease; FAMILY PHYSICIAN Family Medicine | DX: I25.10 Atherosclerotic heart disease of native coronary artery without angina pectoris (principal); Z95.4 Presence of other heart-valve replacement | CPT/HCPCS: G0422; G0423 ==

== ENCOUNTER → 2024-11-09 14:56 | Outpatient (REF) | payer MEDICARE, SELFPAY ==
[2024-11-09 16:54] LABS: INR 2.84; PT 29.7 Sec (11.4-14.6)
== END ==
LOC: REG 14:56
PROVIDERS: ATTENDING PHYSICIAN Internal Medicine Cardiovascular Disease; FAMILY PHYSICIAN Family Medicine
DX: I48.21 Permanent atrial fibrillation (principal)
CPT/HCPCS: 36415; 85610

== ENCOUNTER 2024-11-24 12:09 | Outpatient (RCR) | payer MEDICARE, SELFPAY | END 2024-11-24 12:55 | disposition home or self-care (01) | LOC: CRHB 12:09 | PROVIDERS: ATTENDING PHYSICIAN Internal Medicine Cardiovascular Disease; FAMILY PHYSICIAN Family Medicine | DX: I25.10 Atherosclerotic heart disease of native coronary artery without angina pectoris (principal); Z95.4 Presence of other heart-valve replacement (principal); Z95.5 Presence of coronary angioplasty implant and graft; E78.5 Hyperlipidemia, unspecified; I48.91 Unspecified atrial fibrillation; I11.0 Hypertensive heart disease with heart failure; I50.32 Chronic diastolic (congestive) heart failure | CPT/HCPCS: G0422; G0423 ==

== ENCOUNTER → 2024-12-01 08:05 | Outpatient (REF) | payer MEDICARE, SELFPAY ==
[2024-12-01 09:56] LABS: INR 2.24; PT 24.8 Sec (11.4-14.6)
== END ==
LOC: REG 08:05
PROVIDERS: ATTENDING PHYSICIAN Internal Medicine Rheumatology; FAMILY PHYSICIAN Family Medicine; OTHER PHYSICIAN Internal Medicine Cardiovascular Disease
DX: I48.21 Permanent atrial fibrillation (principal); M16.11 Unilateral primary osteoarthritis, right hip
CPT/HCPCS: 36415; 73522; 85610

== ENCOUNTER → 2024-12-22 15:51 | Outpatient (REF) | payer MEDICARE, SELFPAY | LOC: RAD 15:51 | PROVIDERS: ATTENDING PHYSICIAN Family Medicine | DX: R10.31 Right lower quadrant pain (principal); R26.89 Other abnormalities of gait and mobility; M25.551 Pain in right hip | CPT/HCPCS: 76882 ==

== ENCOUNTER → 2024-12-30 09:34 | Outpatient (REF) | payer MEDICARE, SELFPAY | LOC: RAD 09:34 | PROVIDERS: ATTENDING PHYSICIAN Family Medicine | DX: R10.31 Right lower quadrant pain (principal); R26.89 Other abnormalities of gait and mobility; M25.551 Pain in right hip | CPT/HCPCS: 76882 ==

== ENCOUNTER → 2025-01-05 09:55 | Outpatient (REF) | payer MEDICARE, SELFPAY | LOC: RCS 09:55 | PROVIDERS: ATTENDING PHYSICIAN Internal Medicine Cardiovascular Disease; FAMILY PHYSICIAN Family Medicine | DX: I34.0 Nonrheumatic mitral (valve) insufficiency (principal) | CPT/HCPCS: 93306 ==

== ENCOUNTER → 2025-01-12 12:25 | Outpatient (REF) | payer MEDICARE, SELFPAY ==
[2025-01-12 13:21] LABS: INR 2.19; PT 24.4 Sec (11.4-14.6)
== END ==
LOC: REG 12:25
PROVIDERS: ATTENDING PHYSICIAN Internal Medicine Cardiovascular Disease; FAMILY PHYSICIAN Family Medicine
DX: I48.21 Permanent atrial fibrillation (principal)
CPT/HCPCS: 36415; 85610

== ENCOUNTER 2025-02-03 21:08 | Emergency (ER) | payer SELFPAY ==
[2025-02-03 21:12] VITALS: BP 101/54
[2025-02-03 21:13] VITALS: BP 101/54
[2025-02-03 21:19] LABS: Glucose - Point of Care 160 mg/dl (70-99)
[2025-02-03 21:27] LABS: Hematocrit 40.6 % (39.0-52.0); Hemoglobin 13.8 g/dL (13.0-18.0); Mean Corp Hgb Conc. 34.0 g/dL (33.0-37.0); Mean Corpuscular Volume 93.1 fL (80.0-94.0); Nucleated Red Blood Cells % 0 % (-); Platelet Count 160 10^3/uL (130-400); Red Cell Dist. Width 14.4 % (11.5-14.5)
[2025-02-03 21:49] LABS: ALT (SGPT) 30 U/L (0-50); AST (SGOT) 37 U/L (17-59); Albumin 5.0 g/dl (3.5-5.0); Alkaline Phosphatase 95 U/L (38-126); Blood Urea Nitrogen 38 mg/dl (9-20); Calcium 9.8 mg/dl (8.4-10.2); Carbon Dioxide 21 mmol/L (22-30); Chloride 93 mmol/L (98-107); Glucose 160 mg/dl (70-99); Potassium 4.2 mmol/L (3.5-5.1); Sodium 133 mmol/L (135-145); Total Protein 8.5 g/dl (6.3-8.2); eGFR > 60.00
[2025-02-03 22:00] VITALS: BP 98/65
[2025-02-03 23:00] VITALS: BP 122/65
[2025-02-03 23:41] LABS: INR 2.79; PT 29.8 Sec (11.4-14.6)
[2025-02-04] VITALS: BP 104/61
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
== END 2025-02-04 01:05 | disposition home or self-care (01) ==
LOC: EMR 21:08
PROVIDERS: Emergency Medicine; EMERGENCY PHYSICIAN Emergency Medicine; FAMILY PHYSICIAN Family Medicine
DX: S00.511A Abrasion of lip, initial encounter (principal); V49.40XA Driver injured in collision with unspecified motor vehicles in traffic accident, initial encounter; Y92.410 Unspecified street and highway as the place of occurrence of the external cause; F10.129 Alcohol abuse with intoxication, unspecified; E11.65 Type 2 diabetes mellitus with hyperglycemia; I25.10 Atherosclerotic heart disease of native coronary artery without angina pectoris; I48.20 Chronic atrial fibrillation, unspecified; I50.9 Heart failure, unspecified; Z79.01 Long term (current) use of anticoagulants; Z79.84 Long term (current) use of oral hypoglycemic drugs; Z79.82 Long term (current) use of aspirin; Z95.0 Presence of cardiac pacemaker; Z95.5 Presence of coronary angioplasty implant and graft; Y90.6 Blood alcohol level of 120-199 mg/100 ml
CPT/HCPCS: 99284; 70450; 80053; 82077; 82962; 85025; 85610; 93005

== ENCOUNTER 2025-02-05 07:57 | Outpatient (RCR) | payer MEDICARE, SELFPAY | END 2025-02-05 23:59 | disposition home or self-care (01) | LOC: RPT 07:57 | PROVIDERS: ATTENDING PHYSICIAN Family Medicine | DX: R10.31 Right lower quadrant pain (principal); R26.89 Other abnormalities of gait and mobility | CPT/HCPCS: 97110; 97162; 97535 ==

== ENCOUNTER → 2025-02-09 07:22 | Outpatient (REF) | payer MEDICARE, SELFPAY ==
[2025-02-09 08:51] LABS: INR 3.30; PT 33.4 Sec (11.4-14.6)
[2025-02-09 09:14] LABS: Blood Urea Nitrogen 37 mg/dl (9-20); Calcium 9.9 mg/dl (8.4-10.2); Carbon Dioxide 30 mmol/L (22-30); Chloride 99 mmol/L (98-107); Glucose 154 mg/dl (70-99); Potassium 4.1 mmol/L (3.5-5.1); Sodium 137 mmol/L (135-145); eGFR > 60.00
[2025-02-09 09:25] LABS: Microalbumin, Random Urine 8.0 mg/dl (0.6-1.7)
[2025-02-09 09:27] LABS: Microalb - Urine Creatinine 93.600 mg/dl
[2025-02-09 10:19] LABS: Glycohemoglobin (HgbA1c) 6.2 % (4.0-5.6)
== END ==
LOC: REG 07:22
PROVIDERS: ATTENDING PHYSICIAN Internal Medicine Cardiovascular Disease; FAMILY PHYSICIAN Family Medicine
DX: E11.59 Type 2 diabetes mellitus with other circulatory complications (principal); I48.21 Permanent atrial fibrillation
CPT/HCPCS: 36415; 80048; 82043; 82570; 83036; 85610

== ENCOUNTER → 2025-02-16 16:07 | Outpatient (REF) | payer MEDICARE, SELFPAY ==
[2025-02-16 17:15] LABS: INR 2.51; PT 27.1 Sec (11.4-14.6)
== END ==
LOC: REG 16:07
PROVIDERS: ATTENDING PHYSICIAN Internal Medicine Cardiovascular Disease; FAMILY PHYSICIAN Family Medicine
DX: I48.21 Permanent atrial fibrillation (principal)
CPT/HCPCS: 36415; 85610

== ENCOUNTER → 2025-02-23 15:05 | Outpatient (REF) | payer MEDICARE, SELFPAY ==
[2025-02-23 16:12] LABS: INR 2.19; PT 24.4 Sec (11.4-14.6)
== END ==
LOC: REG 15:05
PROVIDERS: ATTENDING PHYSICIAN Internal Medicine Cardiovascular Disease; FAMILY PHYSICIAN Family Medicine
DX: I48.21 Permanent atrial fibrillation (principal)
CPT/HCPCS: 36415; 85610

== ENCOUNTER → 2025-03-03 14:21 | Outpatient (REF) | payer MEDICARE, SELFPAY ==
[2025-03-03 15:06] LABS: INR 2.37; PT 26.3 Sec (11.4-14.6)
== END ==
LOC: REG 14:21
PROVIDERS: ATTENDING PHYSICIAN Internal Medicine Cardiovascular Disease; FAMILY PHYSICIAN Family Medicine
DX: I48.21 Permanent atrial fibrillation (principal)
CPT/HCPCS: 36415; 85610

== ENCOUNTER → 2025-03-10 15:30 | Outpatient (REF) | payer MEDICARE, SELFPAY ==
[2025-03-10 16:13] LABS: INR 2.22; PT 25.1 Sec (11.4-14.6)
== END ==
LOC: REG 15:30
PROVIDERS: ATTENDING PHYSICIAN Internal Medicine Cardiovascular Disease; FAMILY PHYSICIAN Family Medicine
DX: I48.21 Permanent atrial fibrillation (principal)
CPT/HCPCS: 36415; 85610

== ENCOUNTER 2025-03-12 08:35 | Outpatient (RCR) | payer MEDICARE, SELFPAY | END 2025-03-12 23:59 | disposition home or self-care (01) | LOC: RPT 08:35 | PROVIDERS: ATTENDING PHYSICIAN Family Medicine | DX: R10.31 Right lower quadrant pain (principal); R26.89 Other abnormalities of gait and mobility; Z73.6 Limitation of activities due to disability | CPT/HCPCS: 97110; 97530; 97535 ==

== ENCOUNTER 2025-04-09 07:06 | Outpatient (RCR) | payer MEDICARE, SELFPAY | END 2025-04-09 23:59 | disposition home or self-care (01) | LOC: RPT 07:06 | PROVIDERS: ATTENDING PHYSICIAN Family Medicine | DX: R10.31 Right lower quadrant pain (principal); R26.89 Other abnormalities of gait and mobility; Z73.6 Limitation of activities due to disability | CPT/HCPCS: 97110; 97530 ==

== ENCOUNTER → 2025-04-12 10:37 | Outpatient (REF) | payer MEDICARE, SELFPAY ==
[2025-04-12 12:22] LABS: INR 1.73; PT 20.4 Sec (11.4-14.6)
== END ==
LOC: REG 10:37
PROVIDERS: ATTENDING PHYSICIAN Internal Medicine Cardiovascular Disease
DX: I48.21 Permanent atrial fibrillation (principal)
CPT/HCPCS: 36415; 85610

== ENCOUNTER → 2025-04-23 15:25 | Outpatient (REF) | payer MEDICARE, SELFPAY ==
[2025-04-23 16:27] LABS: INR 2.49; PT 27.1 Sec (11.4-14.6)
== END ==
LOC: REG 15:25
PROVIDERS: ATTENDING PHYSICIAN Internal Medicine Cardiovascular Disease; FAMILY PHYSICIAN Family Medicine
DX: I48.21 Permanent atrial fibrillation (principal)
CPT/HCPCS: 36415; 85610

== ENCOUNTER 2025-05-11 08:35 | Outpatient (RCR) | payer MEDICARE, SELFPAY | END 2025-05-11 23:59 | disposition home or self-care (01) | LOC: RPT 08:35 | PROVIDERS: ATTENDING PHYSICIAN Family Medicine | DX: R10.31 Right lower quadrant pain (principal); R26.89 Other abnormalities of gait and mobility; Z73.6 Limitation of activities due to disability | CPT/HCPCS: 97110; 97530 ==